=== PATIENT | male | born 1935 | race Caucasian/White ===

== ENCOUNTER 2018-02-12 11:37 | Inpatient (IN) | payer MEDICARE ==
[~2018-02-12] VITALS: Ht 182.9 cm; Wt 83.0 kg
[2018-02-12] VITALS (10 sets, daily range): BP systolic 115–166; BP diastolic 60–77; PULSE 59–88; RESP 15–22; TEMP 97.6–98.4; O2SAT 95–100
[~2018-02-12 11:37] MED LIST: AMLO5TAB96 PO; DILA100C PO; FERR324T PO; FLORPAK2 OR; LABE200T2 PO; METHY5 PO; METO25 PO; SENN15TA2 OR; SIMV20TA OR
[2018-02-12] MEDS ORDERED: SODIUM CHLORIDE 0.9% FLUSH 10 ML FLUSH IVF PRN (12:00)
--- NOTE | 2018-02-12 12:00 | PD ---
HPI Chief Complaint: General Weakness Time Seen by Provider: 11:53 Travel History International Travel<30 days: No Contact w/Intl Traveler<30days: No Traveled to known affect area: No History of Present Illness HPI 82-year-old male with history of CAD, hypertension, remote closed head injury with subdural hematoma, presents emergency department today for evaluation of recurrent near syncopal episodes. Patient states he has been feeling dizzy, "like he is going to pass out" intermittently over the past several months however it has become more frequent. He reports worsening shortness of breath. No chest pain or tightness. He was then his primary care provider's office yesterday and was noted to have bradycardia with a heart rate in the 40s, however this was not sustained. Patient denies any recent falls. Denies any headache. No other focal deficits weakness. PFSH Past Medical History Arthritis: Yes (ALL OVER) Autoimmune Disease: No Cancer: No Cardiovascular Problems: Yes High Cholesterol: Yes Endocrine: No GERD: Yes Genitourinary: No Hypertension: Yes Immune Disorder: No Implanted Vascular Access Dvce: Yes Musculoskeletal: Yes Neurologic: Yes (closed head injury, subdural hematoma) Psychiatric: No Reproductive: No Respiratory: No Immunizations Current: Yes Past Surgical History Abdominal Surgery: Yes (HIATAL HERNIA ) AICD: No Arteriovenous Shunt: No Cardiac Surgery: No Ear Surgery: No Endocrine Surgery: No Eye Surgery: No Genitourinary Surgery: No Insulin Pump: No Joint Replacement: Yes (BILATERAL HIP REPLACEMENTS) Oral Surgery: Yes (TEETH PULLED) Pacemaker: No Thoracic Surgery: Yes Social History Alcohol Use: No Tobacco Use: No Substance Use: No Allergies-Medications (Allergen,Severity, Reaction): Coded Allergies: diatrizoate meglumine (Unverified Allergy, Severe, 06/10/17) gadobenic acid (Unverified Allergy, Severe, 06/10/17) gadodiamide (Unverified Allergy, Severe, 06/10/17) gadoteridol (Unverified Allergy, Severe, 06/10/17) iodixanol (Unverified Allergy, Severe, 06/10/17) iohexol (Unverified Allergy, Severe, 06/10/17) Reported Meds & Prescriptions Reported Meds & Active Scripts Active Reported Dilantin Kapseals (Phenytoin Sodium) 100 Mg Cap 100 Mg PO Q 6HRS Lopressor (Metoprolol Tartrate) 25 Mg Tab 25 Mg PO BID Florastor (Saccharomyces Boulardii) 250 Mg Caleb 250 Mg OR Ritalin (Methylphenidate HCl) 5 Mg Tab 5 Mg PO Labetalol Hcl (Labetalol HCl) 200 Mg Tab 200 Mg PO Norvasc (Amlodipine Besylate) 5 Mg Tab 5 Mg PO DAILY Senna (Sennosides) 15 Mg Tab 15 Mg OR Ferrous Gluconate 325 Mg Tab 325 Mg PO Simvastatin 20 Mg Tab 20 Mg OR Review of Systems Except as stated in HPI: all other systems reviewed are Neg Physical Exam Narrative GENERAL: Well-nourished elderly male patient, hard of hearing, but in no acute distress. SKIN: Focused skin assessment warm/dry. HEAD: Atraumatic. Normocephalic. EYES: Pupils equal and round. No scleral icterus. No injection or drainage. ENT: No nasal bleeding or discharge. Mucous membranes pink and moist. NECK: Trachea midline. No JVD. CARDIOVASCULAR: Regular rate and rhythm. RESPIRATORY: No accessory muscle use. Clear to auscultation. Breath sounds equal bilaterally. GASTROINTESTINAL: Abdomen soft, non-tender, nondistended. Hepatic and splenic margins not palpable. RECTAL EXAM: No masses or tenderness, stool is brown. MUSCULOSKELETAL: No obvious deformities. No clubbing. No cyanosis. No edema. NEUROLOGICAL: Awake and alert. No obvious cranial nerve deficits. Motor grossly within normal limits. Normal speech. PSYCHIATRIC: Appropriate mood and affect; insight and judgment normal. Data Data Last Documented VS Vital Signs Date Time Temp Pulse Resp B/P (MAP) Pulse Ox O2 Delivery O2 Flow Rate FiO2 02/12/18 13:26 66 17 145/69 (94) 100 Nasal Cannula 2.00 02/12/18 11:47 97.6 Orders Orders Electrocardiogram (02/12/18 11:59) Basic Metabolic Panel (Bmp) (02/12/18 11:59) Ckmb (Isoenzyme) Profile (02/12/18 11:59) Complete Blood Count With Diff (02/12/18 11:59) Magnesium (Mg) (02/12/18 11:59) Prothrombin Time / Inr (Pt) (02/12/18 11:59) Act Partial Throm Time (Ptt) (02/12/18 11:59) Troponin I (02/12/18 11:59) Ecg Monitoring (02/12/18 11:59) Bilateral Bp Monitoring (02/12/18 11:59) Iv Access Insert/Monitor (02/12/18 11:59) Oximetry (02/12/18 11:59) Oxygen Administration (02/12/18 11:59) Sodium Chloride 0.9% Flush (Ns Flush) (02/12/18 12:00) Chest, Pa & Lat (02/12/18 11:59) Ct Brain W/O Iv Contrast(Rout) (02/12/18 ) Orthostatic Vital Signs (02/12/18 12:07) Sodium Chlorid 0.9% 500 Ml Inj (Ns 500 M (02/12/18 13:15) Admit Order (Ed Use Only) (02/12/18 14:06) Labs Laboratory Tests Test 02/12/18 12:10 White Blood Count 7.2 TH/MM3 Red Blood Count 3.01 MIL/MM3 Hemoglobin 7.4 GM/DL Hematocrit 23.0 % Mean Corpuscular Volume 76.5 FL Mean Corpuscular Hemoglobin 24.4 PG Mean Corpuscular Hemoglobin Concent 31.9 % Red Cell Distribution Width 19.1 % Platelet Count 310 TH/MM3 Mean Platelet Volume 7.2 FL Neutrophils (%) (Auto) 72.4 % Lymphocytes (%) (Auto) 13.3 % Monocytes (%) (Auto) 11.0 % Eosinophils (%) (Auto) 2.5 % Basophils (%) (Auto) 0.8 % Neutrophils # (Auto) 5.2 TH/MM3 Lymphocytes # (Auto) 1.0 TH/MM3 Monocytes # (Auto) 0.8 TH/MM3 Eosinophils # (Auto) 0.2 TH/MM3 Basophils # (Auto) 0.1 TH/MM3 CBC Comment DIFF FINAL Differential Comment Prothrombin Time 10.9 SEC Prothromb Time International Ratio 1.1 RATIO Activated Partial Thromboplast Time 26.8 SEC Blood Urea Nitrogen 29 MG/DL Creatinine 1.95 MG/DL Random Glucose 86 MG/DL Calcium Level 8.5 MG/DL Magnesium Level 2.1 MG/DL Sodium Level 141 MEQ/L Potassium Level 4.1 MEQ/L Chloride Level 111 MEQ/L Carbon Dioxide Level 20.8 MEQ/L Anion Gap 9 MEQ/L Estimat Glomerular Filtration Rate 33 ML/MIN Total Creatine Kinase 46 U/L Troponin I LESS THAN 0.02 NG/ML [facility] Medical Decision Making Medical Screen Exam Complete: Yes Emergency Medical Condition: Yes Medical Record Reviewed: Yes Differential Diagnosis Symptomatic anemia versus electrolyte abnormality versus intracranial etiology versus arrhythmia Narrative Course 82-year-old male presents emergency department for evaluation of recurrent near syncopal episodes. Patient appears without distress. Vital signs are overall stable except for patient's EKG is a normal sinus rhythm with nonsustained pauses. Patient does not have any pain or shortness of breath. He is unable to stand on orthostatics due to sensation of lightheadedness. Hemoglobin is 7.4. Stool is occult negative. Laboratory Tests Test 02/12/18 12:10 White Blood Count 7.2 TH/MM3 Red Blood Count 3.01 MIL/MM3 Hemoglobin 7.4 GM/DL Hematocrit 23.0 % Mean Corpuscular Volume 76.5 FL Mean Corpuscular Hemoglobin 24.4 PG Mean Corpuscular Hemoglobin Concent 31.9 % Red Cell Distribution Width 19.1 % Platelet Count 310 TH/MM3 Mean Platelet Volume 7.2 FL Neutrophils (%) (Auto) 72.4 % Lymphocytes (%) (Auto) 13.3 % Monocytes (%) (Auto) 11.0 % Eosinophils (%) (Auto) 2.5 % Basophils (%) (Auto) 0.8 % Neutrophils # (Auto) 5.2 TH/MM3 Lymphocytes # (Auto) 1.0 TH/MM3 Monocytes # (Auto) 0.8 TH/MM3 Eosinophils # (Auto) 0.2 TH/MM3 Basophils # (Auto) 0.1 TH/MM3 CBC Comment DIFF FINAL Differential Comment Prothrombin Time 10.9 SEC Prothromb Time International Ratio 1.1 RATIO Activated Partial Thromboplast Time 26.8 SEC Blood Urea Nitrogen 29 MG/DL Creatinine 1.95 MG/DL Random Glucose 86 MG/DL Calcium Level 8.5 MG/DL Magnesium Level 2.1 MG/DL Sodium Level 141 MEQ/L Potassium Level 4.1 MEQ/L Chloride Level 111 MEQ/L Carbon Dioxide Level 20.8 MEQ/L Anion Gap 9 MEQ/L Estimat Glomerular Filtration Rate 33 ML/MIN Total Creatine Kinase 46 U/L Troponin I LESS THAN 0.02 NG/ML Last Impressions Chest X-Ray 02/12/18 6171 Signed Impressions: Service Date/Time: January 12:45 - CONCLUSION: Bibasilar subsegmental atelectasis. Ty Rubin MD Head CT 02/12/18 0000 Signed Impressions: Service Date/Time: January 12:30 - CONCLUSION: 1. No acute intracranial abnormality is identified. 2. Stable chronic findings include mild generalized atrophy and mild periventricular white matter low attenuation characteristic of chronic microvascular ischemia. 3. 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 Romel Roberson MD Findings are reviewed and discussed with my attending physician. Patient be admitted observation to Dr. Watson for further evaluation. Plan is discussed with the patient and his daughters. Diagnosis Primary Impression: Postural dizziness with near syncope Additional Impressions: Anemia Qualified Codes: D64.9 - Anemia, unspecified Shortness of breath Admitting Information Admitting Physician Requests: Observation Condition: Stable ShavonLanie JACOBS Feb 12, 2018 12:00
[2018-02-12 12:26] LABS: AUTOMATED NEUTROPHIL # 5.2 TH/MM3 (1.8-7.7); BASOPHIL # 0.1 TH/MM3 (0-0.2); BASOPHIL % 0.8 % (0.0-2.0); EOSINOPHIL # 0.2 TH/MM3 (0-0.4); EOSINOPHIL % 2.5 % (0.0-4.0); HEMOGLOBIN 7.4 GM/DL (13.0-17.0); LYMPH % 13.3 % (9.0-44.0); MEAN CELL VOLUME 76.5 FL (80.0-100.0); MEAN CORPUSCULAR HEMOGLOBIN 24.4 PG (27.0-34.0); MEAN CORPUSCULAR HGB CONC 31.9 % (32.0-36.0); MEAN PLATELET VOLUME 7.2 FL (7.0-11.0); MONOCYTE # 0.8 TH/MM3 (0-0.9); NEUT % 72.4 % (16.0-70.0); PLATELET COUNT 310 TH/MM3 (150-450); RED BLOOD COUNT 3.01 MIL/MM3 (4.50-5.90); RED CELL DISTRIBUTION WIDTH 19.1 % (11.6-17.2); WHITE BLOOD COUNT 7.2 TH/MM3 (4.0-11.0)
[2018-02-12 12:38] LABS: INTERNATIONAL NORMALIZED RATIO 1.1 RATIO; PROTHROMBIN TIME - PATIENT 10.9 SEC (9.8-11.6)
[2018-02-12 12:46] LABS: BICARBONATE 20.8 MEQ/L (21.0-32.0); BLOOD UREA NITROGEN 29 MG/DL (7-18); CALCIUM 8.5 MG/DL (8.5-10.1); CHLORIDE 111 MEQ/L (98-107); CREATININE 1.95 MG/DL (0.60-1.30); GLOMERULAR FILTRATION RATE 33 ML/MIN (>89); GLUCOSE,RANDOM 86 MG/DL (74-106); MAGNESIUM 2.1 MG/DL (1.5-2.5); SODIUM (NA) 141 MEQ/L (136-145)
[2018-02-12 12:50] LABS: TROPONIN I LESS THAN 0.02 NG/ML (0.02-0.05)
--- NOTE | 2018-02-12 12:53 | RADRPT ---
EXAM DATE/TIME: 02/12/2018 12:30 [facility] COMPARISON: CT BRAIN W/O CONTRAST, February 09, 2011, 4:25. INDICATIONS : Dizziness. RADIATION DOSE: 36.43 CTDIvol (mGy) MEDICAL HISTORY : Hypertension. Subdural hematoma. SURGICAL HISTORY : None. ENCOUNTER: Initial ACUITY: 1 day PAIN SCALE: 0/10 LOCATION: cranial TECHNIQUE: Multiple contiguous axial images were obtained of the head. Using automated exposure control and adj ustment of the mA and/or kV according to patient size, radiation dose was kept as low as reasonably a chievable to obtain optimal diagnostic quality images. DICOM format image data is available electro nically for review and comparison. FINDINGS: CEREBRUM: There is stable mild generalized atrophy. Ventricles are normal in size. There is stable mild periven tricular white matter low attenuation. Stable right temporal lobe encephalomalacia remains. The surgi maddi drain on the left has been removed. The left frontal and right posterior parietal extra-axial flu id collections have resolved. No evidence of midline shift, mass lesion, hemorrhage or acute infarct ion. No extra-axial fluid collections are seen. POSTERIOR FOSSA: The cerebellum and brainstem demonstrate no acute abnormality. The 4th ventricle is midline. The ce rebellopontine angle is unremarkable. EXTRACRANIAL: There is a mucus retention cyst in the right maxillary sinus. SKULL: There is a guille hole in the left frontal parietal high convexity related to prior surgical drain. No evidence of skull fracture. CONCLUSION: 1. No acute intracranial abnormality is identified. 2. Stable chronic findings include mild generalized atrophy and mild periventricular white matter low attenuation characteristic of chronic microvascular ischemia. 3. 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 Romel Roberson MD on February 12, 2018 at 12:46 Board Certified Radiologist. This report was verified electronically.
[2018-02-12] MEDS ORDERED: SODIUM CHLORID 0.9% 500 ML INJ 500 ML IV ONE (13:15)
--- NOTE | 2018-02-12 13:39 | RADRPT ---
EXAM DATE/TIME: 02/12/2018 12:45 [facility] COMPARISON: No previous studies available for comparison. INDICATIONS : Wheezing. MEDICAL HISTORY : Hypertension. SURGICAL HISTORY : None. ENCOUNTER: Initial ACUITY: 1 day PAIN SCORE: 0/10 LOCATION: Bilateral chest FINDINGS: PA and lateral views of the chest demonstrate bibasilar linear densities. Heart mildly enlarged. Tort uous thoracic aorta. The cardiomediastinal contours are unremarkable. Osseous structures are intact . CONCLUSION: Bibasilar subsegmental atelectasis. Ty Rubin MD on February 12, 2018 at 13:37 Board Certified Radiologist. This report was verified electronically.
--- NOTE | 2018-02-12 15:29 | HHI.HP ---
[facility] Jaimee Schafer D.O. Admission Diagnosis Near syncope; SOB; anemia Diagnoses: Chief Complaint: dizziness, near syncope Travel History International Travel<30 Days: No Contact w/Intl Traveler <30 Da: No Traveled to Known Affected Are: No History of Present Illness Written by Amber Strong, acting as scribe for Dr. Watson on 02/12/18 at 15: 24. 82-year-old male with history of HTN, HLD, anemia, closed head injury with subdural hematoma, presents with ongoing intractable dizziness and multiple episodes of near syncope. The patient reports over the past multiple months he has been experiencing dizziness, worse upon ambulation, and feels as though he' s going to fall over. He reports some associated shortness of breath and difficulty catching his breath. He reports weakness of bilateral legs associated with the dizziness. Symptoms improve when lying down and while at rest. His last fall was one month ago and he was unable to get off the floor. He states over the past month he hasn't been participating in much activity because he becomes dizzy. He states he just stays home most of the time. Occasionally he will go shopping at [id number] but has to rest multiple times while shopping. The patient states he had a severe episode awhile ago where he fell and suffered a head injury. He denies any complete loss of consciousness but does report multiple episodes of near syncope. Denies any other medical complaints including no chest pain, palpitations, abdominal pain, nausea/ vomiting, or diarrhea. He uses a cane for ambulation. The patient was reportedly seen by his PCP yesterday who noted the patient to have bradycardia with HR in the 40s. He denies any history of heart disease. He denies any other medical complaints. Review of Systems Except as stated in HPI: all other systems reviewed are Neg Past Family Social History Past Medical History Hypertension Hyperlipidemia Closed head injury with subdural hematoma GERD Arthritis Past Surgical History Bilateral total hip arthroplasty Hernia repair Dental extractions Left frontal bur hole evacuation of subdural hematoma 2010 Reported Medications Dilantin Kapseals (Phenytoin Sodium) 100 Mg Cap 100 Mg PO Q 6HRS Lopressor (Metoprolol Tartrate) 25 Mg Tab 25 Mg PO BID Florastor (Saccharomyces Boulardii) 250 Mg Caleb 250 Mg OR Ritalin (Methylphenidate HCl) 5 Mg Tab 5 Mg PO Labetalol Hcl (Labetalol HCl) 200 Mg Tab 200 Mg PO Norvasc (Amlodipine Besylate) 5 Mg Tab 5 Mg PO DAILY Senna (Sennosides) 15 Mg Tab 15 Mg OR Ferrous Gluconate 325 Mg Tab 325 Mg PO Simvastatin 20 Mg Tab 20 Mg OR Allergies: Coded Allergies: diatrizoate meglumine (Unverified Allergy, Severe, 06/10/17) gadobenic acid (Unverified Allergy, Severe, 06/10/17) gadodiamide (Unverified Allergy, Severe, 06/10/17) gadoteridol (Unverified Allergy, Severe, 06/10/17) iodixanol (Unverified Allergy, Severe, 06/10/17) iohexol (Unverified Allergy, Severe, 06/10/17) Active Ordered Medications Current Medications Medications (Trade) Dose Ordered Sig/Sada Route Start Time Stop Time Status Last Admin (NS Flush) 2 ml UNSCH PRN IVF 02/12/18 12:00 Family History Denies any significant family history including no heart disease, diabetes, stroke, or cancers. Father with prostate problems Social History Prior tobacco use, 3 PPD, quit 40years ago Prior heavy alcohol use (previous [employer] insurance), no alcohol recently Denies any illicit drug use Lives alone Ambulates with cane Physical Exam Vital Signs Vital Signs Date Time Temp Pulse Resp B/P (MAP) Pulse Ox O2 Delivery O2 Flow Rate FiO2 02/12/18 13:26 66 17 145/69 (94) 100 Nasal Cannula 2.00 02/12/18 12:23 78 100 Nasal Cannula 2.00 02/12/18 12:23 64 133/62 (85) 76 115/60 (78) 02/12/18 12:17 100 Nasal Cannula 2.00 02/12/18 12:17 100 Nasal Cannula 2.00 02/12/18 11:47 97.6 88 22 132/66 (88) 100 Physical Exam GENERAL: Well-nourished, well-developed elderly male patient, in NAD. SKIN: No rashes, ecchymoses or lesions. Cool and dry. HEAD: Atraumatic. Normocephalic. EYES: Pupils equal round and reactive. Extraocular motions intact. No scleral icterus. No injection or drainage. ENT: Nose without bleeding, purulent drainage or septal hematoma. Airway patent. NECK: Trachea midline. No JVD or lymphadenopathy. Supple, nontender. CARDIOVASCULAR: Bradycardic, regular rhythm without murmurs, gallops, or rubs. RESPIRATORY: Clear to auscultation. Breath sounds equal bilaterally. No wheezes , rales, or rhonchi. GASTROINTESTINAL: Abdomen soft, non-tender, nondistended. No guarding. Normoactive bowel sounds x4. MUSCULOSKELETAL: Extremities without clubbing, cyanosis, or edema. NEUROLOGICAL: Awake and alert. Cranial nerves II through XII intact. Motor and sensory grossly within normal limits. Normal speech. Laboratory Laboratory Tests Test 02/12/18 12:10 White Blood Count 7.2 Red Blood Count 3.01 Hemoglobin 7.4 Hematocrit 23.0 Mean Corpuscular Volume 76.5 Mean Corpuscular Hemoglobin 24.4 Mean Corpuscular Hemoglobin Concent 31.9 Red Cell Distribution Width 19.1 Platelet Count 310 Mean Platelet Volume 7.2 Neutrophils (%) (Auto) 72.4 Lymphocytes (%) (Auto) 13.3 Monocytes (%) (Auto) 11.0 Eosinophils (%) (Auto) 2.5 Basophils (%) (Auto) 0.8 Neutrophils # (Auto) 5.2 Lymphocytes # (Auto) 1.0 Monocytes # (Auto) 0.8 Eosinophils # (Auto) 0.2 Basophils # (Auto) 0.1 CBC Comment DIFF FINAL Differential Comment Prothrombin Time 10.9 Prothromb Time International Ratio 1.1 Activated Partial Thromboplast Time 26.8 Blood Urea Nitrogen 29 Creatinine 1.95 Random Glucose 86 Calcium Level 8.5 Magnesium Level 2.1 Sodium Level 141 Potassium Level 4.1 Chloride Level 111 Carbon Dioxide Level 20.8 Anion Gap 9 Estimat Glomerular Filtration Rate 33 Total Creatine Kinase 46 Troponin I LESS THAN 0.02 Result Diagram: 02/12/18 1210 02/12/18 1210 Imaging Last Impressions Chest X-Ray 02/12/18 [id number] Signed Impressions: Service Date/Time: January 12:45 - CONCLUSION: Bibasilar subsegmental atelectasis. Ty Rubin MD Head CT 02/12/18 0000 Signed Impressions: Service Date/Time: January 12:30 - CONCLUSION: 1. No acute intracranial abnormality is identified. 2. Stable chronic findings include mild generalized atrophy and mild periventricular white matter low attenuation characteristic of chronic microvascular ischemia. 3. 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 MD Kathleen Downs VTE Risk Assessment Caprini VTE Risk Assessment: Mod/High Risk (score >= 2) Caprini Risk Assessment Model Point Value = 1 Point Value = 2 Point Value = 3 Point Value = 5 Age 41-60 Minor surgery BMI > 25 kg/m2 Swollen legs Varicose veins or History of unexplained or recurrent spontaneous Oral contraceptives or hormone replacement Sepsis (< 1 month) Serious lung disease, including pneumonia (< 1 month) Abnormal pulmonary function Acute myocardial infarction Congestive heart failure (< 1 month) History of inflammatory bowel disease Medical patient at bed rest Age 61-74 Arthroscopic surgery Major open surgery (> 45 min) Laparoscopic surgery (> 45 min) Malignancy Confined to bed (> 72 hours) Immobilizing plaster cast Central venous access Age >= 75 History of VTE Family history of VTE Factor V Leiden Prothrombin [id number] Lupus anticoagulant Anticardiolipin antibodies Elevated serum homocysteine Heparin-induced thrombocytopenia Other congenital or acquired thrombophilia Stroke (< 1 month) Elective arthroplasty Hip, pelvis, or leg fracture Acute spinal cord injury (< 1 month) Prophylaxis Regimen Total Risk Factor Score Risk Level Prophylaxis Regimen 0-1 Low Early ambulation 2 Moderate Order ONE of the following: *Sequential Compression Device (SCD) *Heparin 5000 units SQ BID 3-4 Higher Order ONE of the following medications: *Heparin 5000 units SQ TID *Enoxaparin/Lovenox 40 mg SQ daily (WT < 150 kg, CrCl > 30 mL/min) *Enoxaparin/Lovenox 30 mg SQ daily (WT < 150 kg, CrCl > 10-29 mL/min) *Enoxaparin/Lovenox 30 mg SQ BID (WT < 150 kg, CrCl > 30 mL/min) AND/OR *Sequential Compression Device (SCD) 5 or more Highest Order ONE of the following medications: *Heparin 5000 units SQ TID (Preferred with Epidurals) *Enoxaparin/Lovenox 40 mg SQ daily (WT < 150 kg, CrCl > 30 mL/min) *Enoxaparin/Lovenox 30 mg SQ daily (WT < 150 kg, CrCl > 10-29 mL/min) *Enoxaparin/Lovenox 30 mg SQ BID (WT < 150 kg, CrCl > 30 mL/min) AND *Sequential Compression Device (SCD) Assessment and Plan Problem List: (1) Anemia ICD Code: D64.9 - Anemia, unspecified Status: Acute (2) Postural dizziness with near syncope ICD Code: R42 - Dizziness and giddiness; R55 - Syncope and collapse Status: Acute Assessment and Plan 82-year-old male with history of HTN, HLD, anemia, closed head injury with subdural hematoma, presents with ongoing intractable dizziness and multiple episodes of near syncope. Near Syncope/Dizziness: suspect secondary Bradycardia. Patient reportedly with HR in 40s at PCP office. -Head CT images reviewed, no acute findings, mild generalized atrophy, chronic microvascular ischemia; stable encephalomalacia right temporal lobe -EKG reviewed, shows sinus rhythm with 1st degree AV block -Monitor on telemetry -RN to update home med list, hold any rate controlling medications -Check TSH -Check echocardiogram -Consult cardiology -Consult PT Symptomatic Anemia: Hgb 7.4, patient with +dizziness/SOB/near syncope. -give 1u pRBC transfusion -check stool hemoccult -check iron studies -consult gastroenterology -monitor CBC HTN/HLD: chronic -RN to update home meds, will restart -monitor BP, adjust antihypertensives as needed DVT Prophylaxis: teds/SCDs; avoid chemoprophylaxis with anemia the above note was scribed by Ms.Kristy Strong. I attest that I had a face-to- face encounter with the patient and personally performed the history , physical exam and medical decision making. Discussed Condition With Patient, ER COMMISSIONING EDITOR Problem Qualifiers (1) Anemia: Qualified Codes: D64.9 - Anemia, unspecified Amber Strong PA-C Feb 12, 2018 15:29 Karon Watson MD Feb 12, 2018 18:20
[2018-02-12] MEDS ORDERED: SODIUM CHLOR 0.9% 1000 ML INJ 1,000 ML IV ONE (15:45)
--- NOTE | 2018-02-12 16:19 | PD.CONS ---
HPI History of Present Illness This is a 82 year old male with hx SDH who presented to ER for dizziness for the last month. For the last month he has been having dizziness worse when standing up. He also has more frequent burping. If he does NOT burp it exacerbates his dizziness. He has been having falls. He sustained a SDH after a recent fall. Denies blood in stool, black tarry stool, weight loss. Stool was guiac neg in ER. Denies abd pain. Admits episode n/v recently after having a beer. Last colonoscopy in [place] some years ago, can recall no further details. Unsure if he has had EGD. (Eve Renteria) PFSH Past Medical History Hypertension Hyperlipidemia Closed head injury with subdural hematoma GERD Arthritis Past Surgical History Bilateral total hip arthroplasty Hernia repair Dental extractions (Eve Renteria) Coded Allergies: diatrizoate meglumine (Unverified Allergy, Severe, 06/10/17) gadobenic acid (Unverified Allergy, Severe, 06/10/17) gadodiamide (Unverified Allergy, Severe, 06/10/17) gadoteridol (Unverified Allergy, Severe, 06/10/17) iodixanol (Unverified Allergy, Severe, 06/10/17) iohexol (Unverified Allergy, Severe, 06/10/17) Family History Denies any significant family history including no heart disease. 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), no alcohol recently Denies any illicit drug use Lives alone Ambulates with cane (Eve Renteria) Review of Systems Constitutional: COMPLAINS OF: Fatigue, Dizziness, DENIES: Fever Endocrine: DENIES: Polydipsia Eyes: DENIES: Blurred vision Ears, nose, mouth, throat: COMPLAINS OF: Hearing loss Respiratory: DENIES: Cough Cardiovascular: DENIES: Chest pain Gastrointestinal: DENIES: Abdominal pain, Black stools, Bloody stools, Nausea, Vomiting, Hematemesis Genitourinary: DENIES: Hematuria Musculoskeletal: DENIES: Muscle aches Integumentary: DENIES: Jaundice Hematologic/lymphatic: DENIES: Bruising Immunologic/allergic: DENIES: Eczema Neurologic: COMPLAINS OF: Abnormal gait Psychiatric: DENIES: Confusion (Katina Renteriajarrett JACOBS) GI Exam Vitals I&O Vital Signs Date Time Temp Pulse Resp B/P (MAP) Pulse Ox O2 Delivery O2 Flow Rate FiO2 02/12/18 13:26 66 17 145/69 (94) 100 Nasal Cannula 2.00 02/12/18 12:23 78 100 Nasal Cannula 2.00 02/12/18 12:23 64 133/62 (85) 76 115/60 (78) 02/12/18 12:17 100 Nasal Cannula 2.00 02/12/18 12:17 100 Nasal Cannula 2.00 02/12/18 11:47 97.6 88 22 132/66 (88) 100 Imaging Last Impressions Chest X-Ray 02/12/18 1159 Signed Impressions: Service Date/Time: January 12:45 - CONCLUSION: Bibasilar subsegmental atelectasis. Ty Rubin MD Head CT 02/12/18 0000 Signed Impressions: Service Date/Time: January 12:30 - CONCLUSION: 1. No acute intracranial abnormality is identified. 2. Stable chronic findings include mild generalized atrophy and mild periventricular white matter low attenuation characteristic of chronic microvascular ischemia. 3. 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 Romel Roberson MD Laboratory Test 02/12/18 12:10 White Blood Count 7.2 TH/MM3 Red Blood Count 3.01 MIL/MM3 Hemoglobin 7.4 GM/DL Hematocrit 23.0 % Mean Corpuscular Volume 76.5 FL Mean Corpuscular Hemoglobin 24.4 PG Mean Corpuscular Hemoglobin Concent 31.9 % Red Cell Distribution Width 19.1 % Platelet Count 310 TH/MM3 Mean Platelet Volume 7.2 FL Neutrophils (%) (Auto) 72.4 % Lymphocytes (%) (Auto) 13.3 % Monocytes (%) (Auto) 11.0 % Eosinophils (%) (Auto) 2.5 % Basophils (%) (Auto) 0.8 % Neutrophils # (Auto) 5.2 TH/MM3 Lymphocytes # (Auto) 1.0 TH/MM3 Monocytes # (Auto) 0.8 TH/MM3 Eosinophils # (Auto) 0.2 TH/MM3 Basophils # (Auto) 0.1 TH/MM3 CBC Comment DIFF FINAL Differential Comment Prothrombin Time 10.9 SEC Prothromb Time International Ratio 1.1 RATIO Activated Partial Thromboplast Time 26.8 SEC Blood Urea Nitrogen 29 MG/DL Creatinine 1.95 MG/DL Random Glucose 86 MG/DL Calcium Level 8.5 MG/DL Magnesium Level 2.1 MG/DL Sodium Level 141 MEQ/L Potassium Level 4.1 MEQ/L Chloride Level 111 MEQ/L Carbon Dioxide Level 20.8 MEQ/L Anion Gap 9 MEQ/L Estimat Glomerular Filtration Rate 33 ML/MIN Total Creatine Kinase 46 U/L Troponin I LESS THAN 0.02 NG/ML Physical Examination HEENT: PERRL; normocephalic; atraumatic; no jaundice. CHEST: diminished CARDIAC: RRR ABDOMEN: Soft, nondistended, nontender; no hepatosplenomegaly; bowel sounds are present in all four quadrants. EXTREMITIES: No clubbing, cyanosis, or edema. SKIN: Normal; no rash; no jaundice. ORDER EXPEDITER: No focal deficits; alert and oriented times three. (Eve Renteria) Assessment and Plan Plan ASSESSMENT - anemia - hgb 7.4 on admission. microcytic. pt has been having dizziness for the last month. no obvious GIB stool guiac neg. colonoscopy "long time " ago, no further details. limited hx. not on blood thinners cardiology has been consulted. d/w ER physician and cardiology has cleared for endoscopy after pt receives blood transfusion PLAN - transfuse prbc, pending - EGD & colonoscopy tomorrow with cardiac clearance - clears - obtain consent - NPO after midnight - golytely - monitor labs - transfuse as needed - notify GI active bleeding pt seen by myself and Dr Breen and this note is on her behalf (Eve Renteria) Physician Comments seen, examined agree with above start prep after transfusion (Shantell Breen MD) Eve Renteria Feb 12, 2018 16:19 Shantell Breen MD Feb 12, 2018 18:10
[2018-02-12] MEDS ORDERED: ONDANSETRON HCL 4 MG/2 ML VIAL IVP PRN (16:30)
[2018-02-12] MEDS ORDERED: MAGNESIUM HYDROXIDE SUSP 30 ML CUP PO PRN (16:30)
[2018-02-12] MEDS ORDERED: SENNOSIDES 8.6 MG TAB PO PRN (16:30)
[2018-02-12] MEDS ORDERED: BISACODYL 10 MG SUPP RECTAL PRN (16:30)
[2018-02-12] MEDS ORDERED: ACETAMINOPHEN/HYDROcodone 325 MG/5 MG TAB PO PRN (16:30)
[2018-02-12] MEDS ORDERED: ACETAMINOPHEN 325 MG TAB PO PRN (16:30)
[2018-02-12] MEDS ORDERED: LACTULOSE SYRUP 20 GM/30 ML CUP PO PRN (16:30)
[2018-02-12] MEDS ORDERED: PEG (High)/E-LYTE SOLN 4000 ML BTL PO ONE (16:45)
[2018-02-12 17:52] LABS: % SATURATION IRON PROFILE 4.2 % (20-50); IRON (FE) 17 MCG/DL (65-175); TOTAL IRON BINDING CAPACITY 403 MCG/DL (250-450)
[2018-02-12 18:01] LABS: FERRITIN 26 NG/ML (26-388)
[2018-02-12] MEDS ORDERED: SODIUM CHLOR 0.9% 1000 ML INJ 1,000 ML IV SCH (18:30)
[2018-02-12] MEDS: DOCUSATE SODIUM 50 MG/SENNA 8.6 MG TAB PO SCH (23:44)
[2018-02-13] VITALS (10 sets, daily range): BP systolic 149–174; BP diastolic 68–79; PULSE 53–76; RESP 16–20; TEMP 97.6–98.3; O2SAT 95–100
[2018-02-13] MEDS ORDERED: LACTATED RINGER'S 1000 ML IV PRN (02:30)
[2018-02-13] MEDS ORDERED: CHLORHEXIDINE GLUCONATE 2 % 1 PACK (2 CLOTHS) TOPICAL PRN (02:30)
[2018-02-13] MEDS ORDERED: SODIUM CHLORID 0.9% 500 ML IV PRN (02:30)
[2018-02-13] MEDS ORDERED: POVIDONE IODINE 5% (ANTISEPSIS KIT) 4 APPLICATIONS EACH NARE PRN (02:30)
[2018-02-13 07:46] LABS: AUTOMATED NEUTROPHIL # 2.9 TH/MM3 (1.8-7.7); BASOPHIL # 0.1 TH/MM3 (0-0.2); BASOPHIL % 1.6 % (0.0-2.0); EOSINOPHIL # 0.3 TH/MM3 (0-0.4); EOSINOPHIL % 5.8 % (0.0-4.0); HEMATOCRIT 26.3 % (39.0-51.0); HEMOGLOBIN 8.5 GM/DL (13.0-17.0); LYMPH % 13.6 % (9.0-44.0); LYMPHOCYTE # 0.6 TH/MM3 (1.0-4.8); MEAN CELL VOLUME 78.3 FL (80.0-100.0); MEAN CORPUSCULAR HEMOGLOBIN 25.3 PG (27.0-34.0); MEAN CORPUSCULAR HGB CONC 32.3 % (32.0-36.0); MEAN PLATELET VOLUME 7.2 FL (7.0-11.0); MONO % 14.3 % (0.0-8.0); MONOCYTE # 0.6 TH/MM3 (0-0.9); NEUT % 64.7 % (16.0-70.0); PLATELET COUNT 259 TH/MM3 (150-450); RED BLOOD COUNT 3.36 MIL/MM3 (4.50-5.90); RED CELL DISTRIBUTION WIDTH 18.7 % (11.6-17.2); WHITE BLOOD COUNT 4.5 TH/MM3 (4.0-11.0)
[2018-02-13 08:11] LABS: BICARBONATE 20.7 MEQ/L (21.0-32.0); CREATININE 1.49 MG/DL (0.60-1.30)
[2018-02-13] MEDS: DOCUSATE SODIUM 50 MG/SENNA 8.6 MG TAB PO SCH ×2 (09:00→21:00)
--- NOTE | 2018-02-13 09:21 | MB ---
cc: Umang Askew MD DATE: 02/12/2018 HISTORY OF PRESENT ILLNESS: Romel is a very pleasant 82-year-old gentleman followed by Dr. Lobo. He has been on a beta andrea, which was stopped about a week ago due to unstable rhythm. The patient does not recall having a heart catheterization in the past. He does complain of severe shortness of breath and he presents with near syncope, weakness and fatigue, was found to have heart rates in the 30s and 40s as an outpatient. Sent to the ER for further evaluation and management. Since ER admission, there has been no documented bradycardia. The patient denies chest pain, fever, chills, cough, GI/ bleeding, PND, orthopnea, syncope or dizziness. PAST MEDICAL HISTORY: Per history of present illness. PAST MEDICAL HISTORY: Includes arthritis, hyperlipidemia, GERD, hypertension, hiatal hernia, bilateral hip replacements. SOCIAL HISTORY: Denies tobacco or alcohol use. ALLERGIES: DIATROZOATE, GADOBENIC ACID, GADODIAMIDE, GADOTERIDOL, IODIXANOL, IOHEXOL. MEDICATIONS PRIOR TO ADMISSION: Dilantin, Lopressor 25 mg b.i.d., which has been held for a week, Florastor, Ritalin, labetalol 200 mg daily, Norvasc 5 mg daily, Senna, ferrous gluconate 325, simvastatin 20 daily. MEDICATIONS IN THE HOSPITAL: Senna 1 tablet b.i.d. PHYSICAL EXAMINATION: VITAL SIGNS: Pulse ranging between 60 and 88, respiratory rate 17, blood pressure 148/66, sats 100% on 2 liters nasal cannula. GENERAL: He is alert and oriented x 3, in no acute distress. NECK: Supple. No JVD. No bruit. CARDIOVASCULAR: S1, S2. No murmurs, rubs or gallops. LUNGS: Has equal breath sounds bilaterally. ABDOMEN: Soft, nontender, nondistended, with positive bowel sounds. EXTREMITIES: No extremity edema. DIAGNOSTIC DATA: CT of the head shows no acute intracranial abnormality. Stable chronic findings include mild generalized atrophy and mild periventricular white matter, low attenuation characteristic of chronic microvascular ischemia, stable encephalomalacia in the right temporal lobe. Chest x-ray, bibasilar subsegmental atelectasis. ECHOCARDIOGRAM: 1. Normal sinus rhythm at 71 beats per minute, with 1 junctional escape beat. 2. Possible inferior WI, age indeterminate. LABORATORY DATA: White count 7.2, hemoglobin 7.4, hematocrit 23.0, platelet count 310. Troponin less than 0.02. Sodium 141, potassium 4.1, chloride 111, BUN 29, creatinine 1.95. INR is 1.1. HE HAS FOLLOWING DIAGNOSES: 1. Bradycardia. 2. Near syncope. 3. Anemia. 4. Chronic renal insufficiency. 5. Acute renal failure. 6. Dyspnea. 7. Congestive heart failure. DISCUSSION: At this point in time, it is not clear whether or not his bradycardia is related to use of beta blockers. His family shows me a list of medications that did not include labetalol. However, the ER note notes that he was on labetalol. Certainly, we will need to hold all AV lawrence blockade and observe his heart rate completely off AV lawrence blockade. He does have what sounds like [place] Heart Association class IV CHF. Optimally, he will need a heart catheterization, however, he has possible acute versus chronic renal insufficiency and severe anemia. I think he needs an anemia workup first. I discussed the case with Dr. Nguyen, who agrees the patient should be transfused with a unit of blood. We will followup his trends and creatinine, hemoglobin and heart rate for further recommendations. Discussed the case in detail with the patient and his family. They understand and agree with the plan. MD FATIMAH Garrison/CALLUM , 05:36 PM , 06:57 PM
[2018-02-13] MEDS ORDERED: PROPOFOL 200 MG/20 ML AMP IV ONE (12:00)
[2018-02-13] MEDS ORDERED: LIDOCAINE HCL 1% PF 5 ML SYRINGE OTHER ONE (12:00)
--- NOTE | 2018-02-13 13:32 | GIPROC ---
[facility] [address] [facility]. [facility], [id number] EGD PROCEDURE REPORT EXAM DATE: 02/13/2018 PATIENT NAME: Romel Flores MR #: [id number] BIRTHDATE: 1935 ATTENDING: Shantell Breen MD ORDER #: [id number] LEADERSHIP DEVELOPMENT MANAGER: Richardson Huerta and Briseida Vines STATUS: inpatient INDICATIONS: The patient is a 82 yr old male here for an EGD due to anemia PROCEDURE PERFORMED: EGD w/ biopsy EGD w/ directed submucosal injection(s), any substance egd with clips, control of bleeding MEDICATIONS: None and Per Anesthesia. TOPICAL ANESTHETIC: none CONSENT: The patient understands the risks and benefits of the procedure and understands that these risks include, but are not limited to: sedation, allergic reaction, infection, perforation and/or bleeding. Alternative means of evaluation and treatment include, among others: physical exam, x-rays, and/or surgical intervention. The patient elects to proceed with this endoscopic procedure. medical equipment was checked for proper function. Hand hygiene and appropriate measures for infection prevention was taken. After the risks, benefits and alternatives of the procedure were thoroughly explained, Informed consent was verified, confirmed and timeout was successfully executed by the treatment team. The patient was anesthetized with topical anesthesia and the EC-[id number] (Pedi C) endoscope was introduced through the mouth and advanced to the bulb of duodenum. Retroflexed views revealed a hiatal hernia The gastroscope was then slowly withdrawn and removed. Stricture duodenal bulb , ulcer with vissible vessel, oozing slightly when touched-2 clips applied, 3 cc of epinephrine injected-no further bleeding gastritis antrum-biopsy esophagitis distal esophagus-biopsy. ADVERSE EVENTS: There were no complications. IMPRESSIONS: 1. Stricture duodenal bulb , ulcer with vissible vessel, oozing slightly when touched-2 clips applied, 3 cc of epinephrine injected-no further bleeding gastritis antrum-biopsy esophagitis distal esophagus-biopsy 2. Retroflexed views revealed a hiatal hernia RECOMMENDATIONS: 1. Await biopsy results. Biopsy results will not be ready for 7-10 days. If you don't hear from us in two weeks, call our office for biopsy results. 2. Anti-reflux regimen 3. Start PPI 4. Avoid NSAIDS 5. Soft diet ct abdomen/pelvis PATIENT CONDITION: stable DISPOSITION: Inpatient REPEAT EXAM: Return 6 weeks EGD Shantell Breen MD eSigned: Shantell Breen MD 02/13/2018 1:32 PM cc: PATIENT NAME: Romel Flores MR#: [id number]
--- NOTE | 2018-02-13 13:34 | GIPROC ---
[facility] [address] [facility]. [facility] [place], [address] COLONOSCOPY PROCEDURE REPORT EXAM DATE: 02/13/2018 PATIENT NAME: Romel Flores MR #: [id number] BIRTHDATE: 1935 ENDOSCOPIST: Shantell Breen MD ORDER #: [id number] MANAGER CONSTRUCTION: Richardson Huerta and Briseida Vines STATUS: inpatient INDICATIONS: The patient is a 82 yr old male here for a colonoscopy due to anemia PROCEDURE PERFORMED: Colonoscopy, diagnostic MEDICATIONS: None and Per Anesthesia. PREP QUALITY: good PREP TYPE:Other: ESTIMATED BLOOD LOSS: None CONSENT: The patient understands the risks and benefits of the procedure and understands that these risks include, but are not limited to: sedation, allergic reaction, infection, perforation and/or bleeding. Alternative means of evaluation and treatment include, among others: physical exam, x-rays, and/or surgical intervention. The patient elects to proceed with this endoscopic procedure. medical equipment was checked for proper function. Hand hygiene and appropriate measures for infection prevention was taken. After the risks, benefits and alternatives of the procedure were thoroughly explained, Informed consent was verified, confirmed and timeout was successfully executed by the treatment team. A digital exam revealed external hemorrhoids The Pentax EC-[id number] endoscope was introduced through the anus and advanced to the cecum, which was identified by both the appendix and ileocecal valve. The instrument was then slowly withdrawn as the colon was fully examined. COLON FINDINGS: Diverticulosis sigmoid,descending internal hemorrhoids grade 2. Retroflexed views revealed internal hemorrhoids and Retroflexed views revealed medium internal hemorrhoids The scope was then completely withdrawn from the patient and the procedure terminated. PROCEDURE WITHDRAWAL TIME:6minutes ADVERSE EVENTS: There were no complications. IMPRESSIONS: 1. Diverticulosis sigmoid,descending internal hemorrhoids grade 2 2. Retroflexed views revealed internal hemorrhoids 3. Retroflexed views revealed medium internal hemorrhoids 4. Revealed external hemorrhoids RECOMMENDATIONS: 1. Benefiber 2 tsp daily 2. Probiotics from any [employer] or health food store 3. Yearly rectal exams RECALL: Return 10 years Colonoscopy Shantell Breen MD eSigned: Shantell Breen MD 02/13/2018 1:34 PM cc: PATIENT NAME: Romel Flores MR#: [id number]
[2018-02-13] MEDS ORDERED: EPINEPHrine HCL (1:10,000) 1 MG/10 ML SYRINGE OTHER ONE (13:43)
--- NOTE | 2018-02-13 14:13 | HHI.PR ---
Subjective Remarks in no acute distress. had EGD/colonoscopy earlier today. overall feeling better. the daughters at the bedside. Objective Vitals Vital Signs Date Time Temp Pulse Resp B/P (MAP) Pulse Ox O2 Delivery O2 Flow Rate FiO2 02/13/18 13:26 96.9 59 18 140/66 (90) 97 02/13/18 07:32 98.3 57 16 157/68 (97) 98 02/13/18 04:58 53 02/13/18 02:58 98.3 55 16 156/70 (98) 97 02/13/18 01:45 57 02/13/18 00:21 97.6 65 18 151/72 98 02/13/18 00:00 55 02/12/18 23:51 97.6 63 18 129/73 98 02/12/18 23:19 97.7 67 18 142/73 (96) 96 02/12/18 21:46 97.8 68 15 148/77 (100) 95 02/12/18 20:00 98.4 59 16 146/66 (92) 99 02/12/18 18:37 98.0 67 20 166/67 (100) 97 02/12/18 16:32 60 17 148/66 (93) 100 Nasal Cannula 2.00 I/O 02/12/18 02/12/18 02/12/18 02/13/18 02/13/18 02/13/18 07:00 15:00 23:00 07:00 15:00 23:00 Intake Total 500 ml 900 ml 150 ml Output Total 100 ml Balance 400 ml 900 ml 150 ml Intake IV Total 500 ml Packed Cells 800 ml Blood Product IV Normal Saline Flush 100 ml Other 150 ml Output Urine Total 100 ml Result Diagram: 02/13/18 0625 02/13/18 0625 Imaging Last Impressions Chest X-Ray 02/12/18 1159 Signed Impressions: Service Date/Time: January 12:45 - CONCLUSION: Bibasilar subsegmental atelectasis. Ty Rubin MD Head CT 02/12/18 0000 Signed Impressions: Service Date/Time: January 12:30 - CONCLUSION: 1. No acute intracranial abnormality is identified. 2. Stable chronic findings include mild generalized atrophy and mild periventricular white matter low attenuation characteristic of chronic microvascular ischemia. 3. 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 Romel Roberson MD Objective Remarks GENERAL: elderly male, in no apparent distress. CARDIOVASCULAR: Regular rate and regular rhythm without murmurs, gallops, or rubs. RESPIRATORY: Clear to auscultation. Breath sounds equal bilaterally. No wheezes , rales, or rhonchi. GASTROINTESTINAL: Abdomen soft, non-tender, nondistended. Normal, active bowel sounds MUSCULOSKELETAL: Extremities without clubbing, cyanosis, or edema. NEURO: Alert & Oriented x4 to person, place, time, situation. Moves all ext x4 Procedures EGD/ colonoscopy. Medications and IVs Inpatient Medications Acetaminophen (Tylenol) 650 mg Q6H PRN PO headache/fever/pain1-4; Start at 16:30 Acetaminophen/ Hydrocodone Bitart ([place] 5-325 Mg) 1 tab Q8H PRN PO pain 5-10 ; Start 02/12/18 at 16:30 Bisacodyl (Dulcolax Supp) 10 mg DAILY PRN RECTAL SEVERE CONSITIPATION; Start at 16:30 Chlorhexidine Gluconate (Chlorhexidine 2% Cloth) 3 pack VENDOR QUALITY SUPERVISOR PRN TOPICAL SEE LABEL COMMENTS; Start 02/13/18 at 02:30; Stop 02/16/18 at 02:29 Epinephrine HCl (EPINEPHrine (1:10,000) INJ) 1 mg ONCE ONCE OTHER Last administered on 02/13/18at 13:45; Start 02/13/18 at 13:43; Stop 02/13/18 at 13:45 ; Status DC Lactated Ringer's 1,000 ml @ 30 mls/hr Q24H PRN IV SEE LABEL COMMENTS; Start at 02:30; Stop 02/16/18 at 02:29 Lactulose (Lactulose Liq) 30 ml DAILY PRN PO SEVERE CONSITIPATION; Start at 16:30 Magnesium Hydroxide (Milk Of Magnesia Liq) 30 ml Q12H PRN PO Mild constipation ; Start 02/12/18 at 16:30 Ondansetron HCl (Zofran Inj) 4 mg Q6H PRN IVP NAUSEA OR VOMITING; Start at 16:30 Pantoprazole Sodium (Protonix) 40 mg Q12HR PO ; Start 02/13/18 at 21:00 Polyethylene Glycol/ Electrolytes (Colyte Liq) 4,000 ml ONCE ONCE PO Last administered on 02/13/18at 04:25; Start 02/12/18 at 16:45; Stop 02/12/18 at 16:48 ; Status DC Povidone Iodine (Betadine 5% Antisepsis Kit) 1 applic VENDOR QUALITY SUPERVISOR PRN EACH NARE SEE LABEL COMMENTS; Start 02/13/18 at 02:30; Stop 02/16/18 at 02:29 Senna/Docusate Sodium (Charo-Colace) 1 tab BID PO Last administered on at 23:44; Start 02/12/18 at 21:00 Sennosides (Senokot) 17.2 mg Q12H PRN PO Moderate constipation; Start 02/12/18 at 16:30 Sodium Chloride 500 ml @ 30 mls/hr [id number] PRN IV SEE LABEL COMMENTS; Start at 02:30; Stop 02/16/18 at 02:29 Sodium Chloride (NS Flush) 2 ml UNSCH PRN IVF FLUSH AFTER USING IV ACCESS; Start 02/12/18 at 12:00 A/P Problem List: (1) Anemia ICD Code: D64.9 - Anemia, unspecified Status: Acute (2) Postural dizziness with near syncope ICD Code: R42 - Dizziness and giddiness; R55 - Syncope and collapse Status: Acute Assessment and Plan A/P Near Syncope/Dizziness: suspect secondary Bradycardia. Patient reportedly with HR in 40s at PCP office. -Head CT images reviewed, no acute findings, mild generalized atrophy, chronic microvascular ischemia; stable encephalomalacia right temporal lobe -EKG reviewed, shows sinus rhythm with 1st degree AV block -Monitor on telemetry -Check echocardiogram -cardiology consult appreciated. -Consulted PT Symptomatic Anemia- hypochromic/ microcytic- -s/p PRBC transfusion with improved H/H -GI consult appreciated- -s/p EGD with : Stricture duodenal bulb , ulcer with vissible vessel ,oozing slightly when touched-2 clips applied, 3 cc of epinephrine injected-no further bleeding.gastritis antrum-biopsy.esophagitis distal esophagus-biopsy. -s/p colonoscopy with diverticulosis and internal/external hemorrhoids. -continue PPI -CT of the abdomen pending. -continue to monitor H/H and transfuse as needed. acute kidney injury -improved after PRBC transfusion and IVF -continue to monitor. elevated TSH; will check free T4 HTN/HLD: chronic -RN to update home meds, will restart -monitor BP, adjust antihypertensives as needed DNR status per my d/w the daughters. DVT Prophylaxis: teds/SCDs; avoid chemoprophylaxis with anemia Problem Qualifiers (1) Anemia: Qualified Codes: D64.9 - Anemia, unspecified Karon Watson MD Feb 13, 2018 14:13
--- NOTE | 2018-02-13 16:15 | RADRPT ---
EXAM DATE/TIME: 02/13/2018 15:51 [place] COMPARISON: No previous studies available for comparison. INDICATIONS : Anemia, SOB,Near syncope. ORAL CONTRAST: No oral contrast ingested. RADIATION DOSE: 11.83 CTDIvol (mGy) MEDICAL HISTORY : Cardiovascular disease. Hypertension. Gastroesophageal reflux disease.H Hernia, subdural, closed head injury SURGICAL HISTORY : ENCOUNTER: Initial ACUITY: 1 day PAIN SCALE: 0/10 LOCATION: abdomen TECHNIQUE: Volumetric scanning of the abdomen and pelvis was performed. Using automated exposure control and ad justment of the mA and/or kV according to patient size, radiation dose was kept as low as reasonably achievable to obtain optimal diagnostic quality images. DICOM format image data is available electro nically for review and comparison. FINDINGS: LOWER LUNGS: Minimal bibasilar densities. LIVER: Homogeneous density without lesion. There is no dilation of the biliary tree. Multiple calcified gal lstones. SPLEEN: Normal size without lesion. PANCREAS: Within normal limits. KIDNEYS: Atrophic right kidney. There is no mass, stone, or hydronephrosis. Left-sided parapelvic renal cysts . ADRENAL GLANDS: Within normal limits. VASCULAR: There is a bilobed aneurysm distal infrarenal abdominal aorta measuring 3.2 proximally 3.5 cm distall y. Diffuse atherosclerotic changes.. BOWEL/MESENTERY: Diverticulosis of the colon without diverticulitis. There is no free intraperitoneal air or fluid. ABDOMINAL WALL: Within normal limits. RETROPERITONEUM: There is no lymphadenopathy. BLADDER: No wall thickening or mass. Mildly distended REPRODUCTIVE: Within normal limits. INGUINAL: There is no lymphadenopathy or hernia. Fat containing left inguinal hernia. MUSCULOSKELETAL: Bilateral hip prostheses. Atherosclerotic changes thoracolumbar spine. CONCLUSION: 1. Bilobed infrarenal abdominal aortic aneurysm measuring 3.5 cm in maximum dimension. 2. Diverticulosis without diverticulitis. 3. Atrophic right kidney. 4. Cholelithiasis. 5. Left-sided parapelvic renal cyst. 6. Minimal bibasilar atelectasis. Ty Rubin MD on February 13, 2018 at 16:09 Board Certified Radiologist. This report was verified electronically.
--- NOTE | 2018-02-13 16:20 | MB ---
cc: Hudson Freedman MD DATE: 02/13/2018 REASON FOR EVALUATION: Bradycardia. HISTORY OF PRESENT ILLNESS: Romel Flores is an 82-year-old man with a history of multiple medical problems. He came in with multiple episodes of dyspnea with dyspnea on exertion. According to him, he did not actually pass out. He was also noticing shortness of breath and he was profoundly anemic when he came in. He has also had bradycardia. He has now been transfused. He feels fine while in bed. Previously he noticed only the dizziness when he was standing. 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 SOCIAL HISTORY: He lives alone. He drinks a few beers a day. PAST SURGICAL HISTORY: Bilateral total hip replacements, hernia repair, dental extractions. PHYSICAL EXAMINATION: GENERAL: An elderly white male who does not appear to be in any acute distress. VITAL SIGNS: Charted. HEENT: Exam unremarkable. NECK: No JVD or bruits. CHEST: Shows diminished breath sounds consistent with COPD. HEART: Soft S1, normal S2. Regular rhythm. DATA: On telemetry, he has blocked PACs and occasional Wenckebach. EKG shows sinus with blocked PACs. He has got first degree AV block and left axis deviation. Chest x-ray shows cardiomegaly, bibasilar atelectasis. Previous head CTs have shown right temporal lobe encephalomalacia from a previous temporal lobe hematoma in 2010. TSH is elevated at 8.23. Troponins are negative. Hematocrit was only 23 on admission with an MCV of 76.5. Previous echo from 2015 showed mild aortic regurgitation, EF of 45-50%. IMPRESSION: 1, Profound anemia; this is in the process of being worked up. He has also had a blood transfusion. 2. Bradycardia with blocked paroxysmal atrial contractions and intermittent Wenckebach atrioventricular block. He has had moderate degree of bradycardia. At the current time is not clear the bradycardia is severe enough to warrant a pacemaker. It looks like the anemia may be actually more of the contributing factor. RECOMMENDATIONS: We will see how he does now that he has been transfused. If he continues to have dizziness with bradyarrhythmias despite correction of the anemia, he might need a pacemaker. Further therapy to be determined. MD CHYNA Soares/MAXWELL , 03:36 PM , 04:19 PM
[2018-02-13] MEDS ORDERED: VITA10002 PO (18:39)
[2018-02-13] MEDS ORDERED: LEVO50TA4 PO (18:39)
[2018-02-13] MEDS ORDERED: SULF500T34 PO (18:39)
[2018-02-13] MEDS ORDERED: TAMS0.4C4 (18:39)
[2018-02-13] MEDS ORDERED: DONE10TA7 PO (18:39)
[2018-02-13] MEDS ORDERED: METO25TA3 PO (18:39)
[2018-02-13] MEDS ORDERED: SIMV20TA PO (18:39)
[2018-02-13] MEDS ORDERED: CITA20TA4 PO (18:39)
[2018-02-13] MEDS ORDERED: AMLO10TA2 PO (18:39)
[2018-02-13] MEDS ORDERED: CHOL1TAB42 (18:39)
[2018-02-13] MEDS ORDERED: OMEP40CA2 (18:39)
[2018-02-13] MEDS ORDERED: HYDR200T3 PO (18:39)
[2018-02-13] MEDS: PANTOPRAZOLE SOD 40 MG DELAYED RELEASE TAB PO SCH (22:48)
[2018-02-14] VITALS (7 sets, daily range): BP systolic 127–183; BP diastolic 76–85; PULSE 64–75; RESP 18–20; TEMP 97.3–98.2; O2SAT 94–97
[2018-02-14] MEDS: LEVOTHYROXINE SODIUM 50 MCG TAB PO SCH (05:46)
--- NOTE | 2018-02-14 07:41 | MB ---
cc: Halina Camilo MD DATE: 02/13/2018 DATE OF SERVICE: 02/13/2018. CHIEF COMPLAINT: ` 1. Symptomatic anemia. 2. Iron deficiency. 3. Suspected gastrointestinal bleed. HISTORY OF PRESENT ILLNESS: Mr. Flores is an 82-year-old gentleman with a history of hypertension, hyperlipidemia, and closed head injury with subdural hematoma, who was admitted to the hospital with intractable dizziness and multiple episodes of near syncope. This has been progressively worsening over the past several months that is leading up to hospitalization. He reports that he felt that anytime he went to stand up, he would just fall over. He also reported shortness of breath and difficulty with catching his breath. Symptoms improve when he is resting and when he is lying down. Over the past month, this has been so severe that he has barely been able to get out of bed. He presented to the emergency room and he was noted to have bradycardia. Per report, his primary care doctor noted that his heart rate was down as low as the 40s. He was seen by the gastroenterology team, and they performed an EGD and a colonoscopy. Colonoscopy showed diverticulosis of the sigmoid, descending internal hemorrhoids, grade 2, and medium internal hemorrhoids. 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 He has also had the cardiology service see him, which revealed echocardiogram with normal sinus rhythm, possible inferior [place], age indeterminate. They reported that uncertain the etiology of his bradycardia could be secondary to beta blockers, which were recently stopped; recommended to hold all AV lawrence blockade, and recommended resolution and workup of his anemia. At the time that I am seeing him, he reports that he is feeling much better, but he is not yet back to his baseline. He is currently receiving his transfusion of a second unit of packed red blood cells. Uncertain of his baseline blood count. Daughter reports that his primary lawn care technician had told him that he would need to see a international freight forwarder in the outpatient setting. PAST MEDICAL HISTORY: Hypertension, hyperlipidemia, closed head injury with subdural hematoma, acid reflux, rheumatoid arthritis. PAST SURGICAL HISTORY: Bilateral total hip arthroplasty, hernia repair, dental extractions, left frontal guille hole for evacuation of subdural in 2010. FAMILY HISTORY: No family history of anemia or blood clots. ROS as above in HPI SOCIAL HISTORY: The patient reports past heavy tobacco use, but quit about 40 years ago. He also reports prior heavy alcohol use, but he reports that he quit several years ago. No illegal drug use. He lives alone. He has 2 daughters who live in this area who have a good support system for him. LABORATORY STUDIES: White blood cell count 4.5, hemoglobin 8.5 (7.4 on admission), platelet count is 259,000. Iron level is 17, total iron binding capacity is 403, percent sat 4.2, ferritin 26, creatinine 1.49. No abnormalities present on his coags. CT scan of the abdomen and pelvis with bilobed infrarenal abdominal aortic aneurysm measuring 3.5 cm, diverticulosis without diverticulitis, atrophic right kidney, cholelithiasis, left-sided parapelvic renal cyst, and minimal bibasilar atelectasis. PHYSICAL EXAMINATION: GENERAL: Well-developed, well-nourished, elderly man, in no distress. HEAD: Normocephalic, atraumatic. ENT: The patient is hard of hearing. Eyes with no scleral icterus. CARDIOVASCULAR: Regular rate and rhythm. No murmurs. RESPIRATORY: Clear to auscultation bilaterally. ABDOMEN: Soft, nontender, nondistended. Bowel sounds present. Extremities with no edema. NEUROLOGIC: Grossly nonfocal. PSYCHIATRIC: Appropriate mood and affect. ASSESSMENT AND PLAN: 1. Anemia secondary to iron deficiency. Hemoglobin on admission was 7.4, and it was microcytic with an MCV of 76.5. The patient also had an elevated RDW at 19.1. He is status post transfusion of 1 unit of packed red blood cells and he is currently receiving his second unit. We will follow up CBC from tomorrow. Uncertain of the patient's baseline hemoglobin. He follows closely with a primary lawn care technician in the [facility]. We will also arrange for the patient to have iron infusion while inpatient. We will place order for IV iron sucrose 200 mg IV over 3 days. Discussed side effects of IV iron including but not limited to allergic reaction. The patient will also follow up closely on the outpatient setting with hematology to ensure resolution of his anemia. Inpatient hematology service will continue to follow. MD JAZMYNE Pedroza , 07:12 AM , 07:40 AM [place]
[2018-02-14] MEDS: PANTOPRAZOLE SOD 40 MG DELAYED RELEASE TAB PO SCH ×3 (08:47→23:14)
[2018-02-14] MEDS: PRAVASTATIN SOD 40 MG TAB PO SCH (08:47)
[2018-02-14] MEDS: CITALOPRAM HYDROBROMIDE 20 MG TAB PO SCH (08:48)
[2018-02-14] MEDS: IRON SUCROSE INJ 200 MG in SODIUM CHLORIDE 0.9% INJ 100 ML IV SCH (08:51)
[2018-02-14] MEDS: DOCUSATE SODIUM 50 MG/SENNA 8.6 MG TAB PO SCH ×2 (08:51→23:14)
[2018-02-14] MEDS ORDERED: METOPROLOL TARTRATE 25 MG TAB PO SCH (09:00)
--- NOTE | 2018-02-14 09:09 | PD.CARD.PN ---
Subjective Subjective Remarks No complaints Objective Medications Current Medications Medications (Trade) Dose Ordered Sig/Sada Route Start Time Stop Time Status Last Admin (NS Flush) 2 ml UNSCH PRN IVF 02/12/18 12:00 (Zofran Inj) 4 mg Q6H PRN IVP 02/12/18 16:30 (Tylenol) 650 mg Q6H PRN PO 02/12/18 16:30 ([place] 5-325 Mg) 1 tab Q8H PRN PO 02/12/18 16:30 (Charo-Colace) 1 tab BID PO 02/12/18 21:00 02/12/18 23:44 (Milk Of Magnesia Liq) 30 ml Q12H PRN PO 02/12/18 16:30 (Senokot) 17.2 mg Q12H PRN PO 02/12/18 16:30 (Dulcolax Supp) 10 mg DAILY PRN RECTAL 02/12/18 16:30 (Lactulose Liq) 30 ml DAILY PRN PO 02/12/18 16:30 Lactated Ringer's 1,000 ml @ 30 mls/hr Q24H PRN IV 02/13/18 02:30 02/16/18 02:29 Sodium Chloride 500 ml @ 30 mls/hr [id number] PRN IV 02/13/18 02:30 02/16/18 02:29 (Betadine 5% Antisepsis Kit) 1 applic AUTO WHEEL ALIGNMENT SPECIALIST PRN EACH NARE 02/13/18 02:30 02/16/18 02:29 (Chlorhexidine 2% Cloth) 3 pack AUTO WHEEL ALIGNMENT SPECIALIST PRN TOPICAL 02/13/18 02:30 02/16/18 02:29 (Protonix) 40 mg Q12HR PO 02/13/18 21:00 02/14/18 08:47 (CeleXA) 20 mg DAILY PO 02/14/18 09:00 02/14/18 08:48 (Aricept) 10 mg HS PO 02/14/18 21:00 (Synthroid) 50 mcg DAILY@0600 PO 02/14/18 06:00 02/14/18 05:46 (Flomax) 0.4 mg HS PO 02/14/18 21:00 (Protonix) 40 mg DAILY PO 02/14/18 09:00 (Pravachol) 40 mg DAILY PO 02/14/18 09:00 02/14/18 08:47 (Norvasc) 10 mg DAILY PO 02/14/18 06:00 02/14/18 08:47 Iron Sucrose 200 mg/Sodium Chloride 110 ml @ 110 mls/hr DAILY IV 02/14/18 09:00 02/16/18 09:59 02/14/18 08:51 Vital Signs / I&O Vital Signs Date Time Temp Pulse Resp B/P (MAP) Pulse Ox O2 Delivery O2 Flow Rate FiO2 02/14/18 07:23 97.3 70 18 160/83 (108) 95 02/14/18 04:54 97.5 68 20 183/85 (117) 96 02/13/18 23:35 97.9 76 20 149/76 (100) 95 02/13/18 18:02 97.6 63 16 174/79 02/13/18 17:48 98.0 67 16 169/77 02/13/18 15:36 97.8 58 16 166/75 (105) 100 02/13/18 13:26 96.9 59 18 140/66 (90) 97 I/O 02/13/18 02/13/18 02/13/18 02/14/18 02/14/18 02/14/18 07:00 15:00 23:00 07:00 15:00 23:00 Intake Total 900 ml 150 ml 400 ml Output Total 500 ml Balance 900 ml 150 ml -100 ml Packed Cells 800 ml 400 ml Blood Product IV Normal Saline Flush 100 ml Other 150 ml Output Urine Total 500 ml Physical Exam Alert Chest clear CV soft S1, nl S2 RRR Abd soft Tele: SR sinus iris. First and asecond degree AV block. Short pauses mostly from blocked PAC's Laboratory Laboratory Tests Test 02/12/18 12:10 02/13/18 06:25 Prothrombin Time 10.9 SEC Prothromb Time International Ratio 1.1 RATIO Activated Partial Thromboplast Time 26.8 SEC Blood Urea Nitrogen 29 MG/DL 24 MG/DL Creatinine 1.95 MG/DL 1.49 MG/DL Random Glucose 86 MG/DL 70 MG/DL Calcium Level 8.5 MG/DL 8.0 MG/DL Magnesium Level 2.1 MG/DL Sodium Level 141 MEQ/L 141 MEQ/L Potassium Level 4.1 MEQ/L 4.3 MEQ/L Chloride Level 111 MEQ/L 112 MEQ/L Carbon Dioxide Level 20.8 MEQ/L 20.7 MEQ/L Iron Level 17 MCG/DL Total Iron Binding Capacity 403 MCG/DL Percent Iron Saturation 4.2 % Ferritin 26 NG/ML Total Creatine Kinase 46 U/L Troponin I LESS THAN 0.02 NG/ML Thyroid Stimulating Hormone 3rd Gen 8.230 uIU/ML White Blood Count 4.5 TH/MM3 Red Blood Count 3.36 MIL/MM3 Hemoglobin 8.5 GM/DL Hematocrit 26.3 % Mean Corpuscular Volume 78.3 FL Mean Corpuscular Hemoglobin 25.3 PG Mean Corpuscular Hemoglobin Concent 32.3 % Red Cell Distribution Width 18.7 % Platelet Count 259 TH/MM3 Mean Platelet Volume 7.2 FL Neutrophils (%) (Auto) 64.7 % Lymphocytes (%) (Auto) 13.6 % Monocytes (%) (Auto) 14.3 % Eosinophils (%) (Auto) 5.8 % Basophils (%) (Auto) 1.6 % Neutrophils # (Auto) 2.9 TH/MM3 Lymphocytes # (Auto) 0.6 TH/MM3 Monocytes # (Auto) 0.6 TH/MM3 Eosinophils # (Auto) 0.3 TH/MM3 Basophils # (Auto) 0.1 TH/MM3 CBC Comment DIFF FINAL Differential Comment Anion Gap 8 MEQ/L Estimat Glomerular Filtration Rate 45 ML/MIN B-Type Natriuretic Peptide 345 PG/ML Free Thyroxine 1.01 NG/DL Imaging Last 48 hours Impressions Abdomen/Pelvis CT 02/13/18 0000 Signed Impressions: Service Date/Time: Tuesday, February 13, 2018 15:51 - CONCLUSION: 1. Bilobed infrarenal abdominal aortic aneurysm measuring 3.5 cm in maximum dimension. 2. Diverticulosis without diverticulitis. 3. Atrophic right kidney. 4. Cholelithiasis. 5. Left-sided parapelvic renal cyst. 6. Minimal bibasilar atelectasis. Ty Rubin MD Chest X-Ray 02/12/18 1159 Signed Impressions: Service Date/Time: January 12:45 - CONCLUSION: Bibasilar subsegmental atelectasis. Ty Rubin MD Assessment and Plan Problem List: (1) Hypertension ICD Codes: I10 - Essential (primary) hypertension (2) Bradycardia ICD Codes: R00.1 - Bradycardia, unspecified (3) First degree atrioventricular block ICD Codes: I44.0 - Atrioventricular block, first degree (4) Mobitz type I Wenckebach atrioventricular block ICD Codes: I44.1 - Atrioventricular block, second degree (5) Iron deficiency anemia ICD Codes: D50.9 - Iron deficiency anemia, unspecified Assessment and Plan Discontinue metoprolol. Does not need a pacemaker at this time. I am signing off - please call if I can help. Hudson Freedman MD Feb 14, 2018 09:09
--- NOTE | 2018-02-14 09:23 | EKG ---
Date Performed: 02/12/2018 Time Performed: 12:06:40 PTAGE: 82 years EKG: Sinus rhythm WITH MARKED SINUS ARRHYTHMIA WITH FIRST DEGREE AV BLOCK BORDERLINE LEFT AXIS DEVIATION ABNORMAL ECG PREVIOUS TRACING : 02/06/2011 04.15 DOCTOR: Rk Elena Interpretating Date/Time 02/14/2018 09:17:42
[2018-02-14 09:45] LABS: AUTOMATED NEUTROPHIL # 4.2 TH/MM3 (1.8-7.7); BASOPHIL # 0.1 TH/MM3 (0-0.2); BASOPHIL % 1.1 % (0.0-2.0); EOSINOPHIL # 0.2 TH/MM3 (0-0.4); EOSINOPHIL % 4.1 % (0.0-4.0); HEMATOCRIT 29.4 % (39.0-51.0); HEMOGLOBIN 9.5 GM/DL (13.0-17.0); LYMPH % 10.2 % (9.0-44.0); LYMPHOCYTE # 0.6 TH/MM3 (1.0-4.8); MEAN CELL VOLUME 78.9 FL (80.0-100.0); MEAN CORPUSCULAR HEMOGLOBIN 25.7 PG (27.0-34.0); MEAN CORPUSCULAR HGB CONC 32.5 % (32.0-36.0); MEAN PLATELET VOLUME 7.6 FL (7.0-11.0); MONO % 11.2 % (0.0-8.0); MONOCYTE # 0.6 TH/MM3 (0-0.9); NEUT % 73.4 % (16.0-70.0); PLATELET COUNT 268 TH/MM3 (150-450); RED BLOOD COUNT 3.72 MIL/MM3 (4.50-5.90); RED CELL DISTRIBUTION WIDTH 19.5 % (11.6-17.2); WHITE BLOOD COUNT 5.7 TH/MM3 (4.0-11.0)
[2018-02-14 09:55] LABS: BICARBONATE 19.7 MEQ/L (21.0-32.0); CALCIUM 8.4 MG/DL (8.5-10.1); CREATININE 1.23 MG/DL (0.60-1.30)
--- NOTE | 2018-02-14 10:44 | PD.ONC.PN ---
Subjective Subjective Remarks Afebrile overnight. Patient resting in bed in nad. 2 daughters at bedside. patient states he feels pretty good. states he thinks he won't feel all the way improved until he is at home again. Objective Data Date Time Temp Pulse Resp B/P (MAP) Pulse Ox O2 Delivery O2 Flow Rate FiO2 02/14/18 07:23 97.3 70 18 160/83 (108) 95 02/14/18 04:54 97.5 68 20 183/85 (117) 96 02/13/18 23:35 97.9 76 20 149/76 (100) 95 02/13/18 18:02 97.6 63 16 174/79 02/13/18 17:48 98.0 67 16 169/77 02/13/18 15:36 97.8 58 16 166/75 (105) 100 02/13/18 13:26 96.9 59 18 140/66 (90) 97 Result Diagram: 02/14/18 0810 02/14/18 0810 Laboratory Results Laboratory Tests Test 02/14/18 08:10 White Blood Count 5.7 TH/MM3 Red Blood Count 3.72 MIL/MM3 Hemoglobin 9.5 GM/DL Hematocrit 29.4 % Mean Corpuscular Volume 78.9 FL Mean Corpuscular Hemoglobin 25.7 PG Mean Corpuscular Hemoglobin Concent 32.5 % Red Cell Distribution Width 19.5 % Platelet Count 268 TH/MM3 Mean Platelet Volume 7.6 FL Neutrophils (%) (Auto) 73.4 % Lymphocytes (%) (Auto) 10.2 % Monocytes (%) (Auto) 11.2 % Eosinophils (%) (Auto) 4.1 % Basophils (%) (Auto) 1.1 % Neutrophils # (Auto) 4.2 TH/MM3 Lymphocytes # (Auto) 0.6 TH/MM3 Monocytes # (Auto) 0.6 TH/MM3 Eosinophils # (Auto) 0.2 TH/MM3 Basophils # (Auto) 0.1 TH/MM3 CBC Comment DIFF FINAL Differential Comment Blood Urea Nitrogen 21 MG/DL Creatinine 1.23 MG/DL Random Glucose 71 MG/DL Calcium Level 8.4 MG/DL Sodium Level 139 MEQ/L Potassium Level 4.1 MEQ/L Chloride Level 109 MEQ/L Carbon Dioxide Level 19.7 MEQ/L Anion Gap 10 MEQ/L Estimat Glomerular Filtration Rate 56 ML/MIN Administered Medications Medications (Trade) Dose Ordered Sig/Sada Route PRN Reason Start Time Stop Time Status Last Admin Dose Admin Senna/Docusate Sodium (Charo-Colace) 1 tab BID PO 02/12/18 21:00 02/12/18 23:44 Pantoprazole Sodium (Protonix) 40 mg Q12HR PO 02/13/18 21:00 02/14/18 08:47 Citalopram Hydrobromide (CeleXA) 20 mg DAILY PO 02/14/18 09:00 02/14/18 08:48 Levothyroxine Sodium (Synthroid) 50 mcg DAILY@0600 PO 02/14/18 06:00 02/14/18 05:46 Pravastatin Sodium (Pravachol) 40 mg DAILY PO 02/14/18 09:00 02/14/18 08:47 Amlodipine Besylate (Norvasc) 10 mg DAILY PO 02/14/18 06:00 02/14/18 08:47 Iron Sucrose 200 mg/Sodium Chloride 110 ml @ 110 mls/hr DAILY IV 02/14/18 09:00 02/16/18 09:59 02/14/18 08:51 Objective Remarks GENERAL: Pleasant elderly male, sitting up in bed in [facility]. SKIN: Warm and dry. HEAD: Normocephalic. EYES: No injection or drainage. NECK: Supple, trachea midline. CARDIOVASCULAR: +S1/S2, bradycardic. RESPIRATORY: Breath sounds equal bilaterally. No accessory muscle use. GASTROINTESTINAL: Abdomen soft, non-tender, nondistended. EXTREMITIES: No cyanosis NEUROLOGICAL: awake and alert. no obvious focal deficit. Assessment/Plan Problem List: (1) Symptomatic anemia ICD Codes: D64.9 - Anemia, unspecified Plan: --iron studies show iron deficiency anemia. --Colonoscopy showed diverticulosis of the sigmoid, descending internal hemorrhoids, grade 2, and medium internal hemorrhoids. 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 history of hypertension, hyperlipidemia, and closed head injury with subdural hematoma, acid reflux, rheumatoid arthritis. Bilateral total hip arthroplasty, hernia repair, dental extractions, left frontal guille hole for evacuation of subdural in 2010. echocardiogram with normal sinus rhythm, possible inferior [place], age indeterminate. etiology of his bradycardia could be secondary to beta blockers, which were recently stopped; recommended to hold all AV lawrence blockade Plan 1. continue iron sucrose therapy 2. monitor H/H 3. follow up with hematology upon discharge--face sheet faxed to new patient referrals. Vee Peña Feb 14, 2018 10:44
--- NOTE | 2018-02-14 11:31 | HHI.PR ---
Subjective Remarks in no acute distress. denies pain. no sob or dizziness. Objective Vitals Vital Signs Date Time Temp Pulse Resp B/P (MAP) Pulse Ox O2 Delivery O2 Flow Rate FiO2 02/14/18 07:23 97.3 70 18 160/83 (108) 95 02/14/18 04:54 97.5 68 20 183/85 (117) 96 02/13/18 23:35 97.9 76 20 149/76 (100) 95 02/13/18 18:02 97.6 63 16 174/79 02/13/18 17:48 98.0 67 16 169/77 02/13/18 15:36 97.8 58 16 166/75 (105) 100 02/13/18 13:26 96.9 59 18 140/66 (90) 97 I/O 02/13/18 02/13/18 02/13/18 02/14/18 02/14/18 02/14/18 07:00 15:00 23:00 07:00 15:00 23:00 Intake Total 900 ml 150 ml 400 ml Output Total 500 ml Balance 900 ml 150 ml -100 ml Packed Cells 800 ml 400 ml Blood Product IV Normal Saline Flush 100 ml Other 150 ml Output Urine Total 500 ml Result Diagram: 02/14/18 0810 02/14/18 0810 Imaging Last Impressions Abdomen/Pelvis CT 02/13/18 0000 Signed Impressions: Service Date/Time: Tuesday, February 13, 2018 15:51 - CONCLUSION: 1. Bilobed infrarenal abdominal aortic aneurysm measuring 3.5 cm in maximum dimension. 2. Diverticulosis without diverticulitis. 3. Atrophic right kidney. 4. Cholelithiasis. 5. Left-sided parapelvic renal cyst. 6. Minimal bibasilar atelectasis. Ty Rubin MD Chest X-Ray 02/12/18 1159 Signed Impressions: Service Date/Time: January 12:45 - CONCLUSION: Bibasilar subsegmental atelectasis. Ty Rubin MD Head CT 02/12/18 0000 Signed Impressions: Service Date/Time: January 12:30 - CONCLUSION: 1. No acute intracranial abnormality is identified. 2. Stable chronic findings include mild generalized atrophy and mild periventricular white matter low attenuation characteristic of chronic microvascular ischemia. 3. 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 Romel Roberson MD Objective Remarks GENERAL: elderly male, in no apparent distress. CARDIOVASCULAR: Regular rate and regular rhythm without murmurs, gallops, or rubs. RESPIRATORY: Clear to auscultation. Breath sounds equal bilaterally. No wheezes , rales, or rhonchi. GASTROINTESTINAL: Abdomen soft, non-tender, nondistended. Normal, active bowel sounds MUSCULOSKELETAL: Extremities without clubbing, cyanosis, or edema. NEURO: Alert & Oriented x4 to person, place, time, situation. Moves all ext x4 Procedures EGD/ colonoscopy. Medications and IVs Inpatient Medications Acetaminophen (Tylenol) 650 mg Q6H PRN PO headache/fever/pain1-4; Start at 16:30 Acetaminophen/ Hydrocodone Bitart ([place] 5-325 Mg) 1 tab Q8H PRN PO pain 5-10 ; Start 02/12/18 at 16:30 Amlodipine Besylate (Norvasc) 10 mg DAILY PO Last administered on 02/14/18at 08: 47; Start 02/14/18 at 06:00 Bisacodyl (Dulcolax Supp) 10 mg DAILY PRN RECTAL SEVERE CONSITIPATION; Start at 16:30 Chlorhexidine Gluconate (Chlorhexidine 2% Cloth) 3 pack LAST REPAIRER HELPER PRN TOPICAL SEE LABEL COMMENTS; Start 02/13/18 at 02:30; Stop 02/16/18 at 02:29 Citalopram Hydrobromide (CeleXA) 20 mg DAILY PO Last administered on 02/14/18at 08:48; Start 02/14/18 at 09:00 Donepezil HCl (Aricept) 10 mg HS PO ; Start 02/14/18 at 21:00 Epinephrine HCl (EPINEPHrine (1:10,000) INJ) 1 mg ONCE ONCE OTHER Last administered on 02/13/18at 13:45; Start 02/13/18 at 13:43; Stop 02/13/18 at 13:45 ; Status DC Iron Sucrose 200 mg/Sodium Chloride 110 ml @ 110 mls/hr DAILY IV Last administered on 02/14/18at 08:51; Start 02/14/18 at 09:00; Stop 02/16/18 at 09:59 Lactated Ringer's 1,000 ml @ 30 mls/hr Q24H PRN IV SEE LABEL COMMENTS; Start at 02:30; Stop 02/16/18 at 02:29 Lactulose (Lactulose Liq) 30 ml DAILY PRN PO SEVERE CONSITIPATION; Start at 16:30 Levothyroxine Sodium (Synthroid) 50 mcg DAILY@0600 PO Last administered on 02/14at 05:46; Start 02/14/18 at 06:00 Magnesium Hydroxide (Milk Of Magnesia Liq) 30 ml Q12H PRN PO Mild constipation ; Start 02/12/18 at 16:30 Metoprolol Tartrate (Lopressor) 25 mg DAILY PO ; Start 02/14/18 at 09:00; Stop 02/14/18 at 09:03; Status DC Ondansetron HCl (Zofran Inj) 4 mg Q6H PRN IVP NAUSEA OR VOMITING; Start at 16:30 Pantoprazole Sodium (Protonix) 40 mg DAILY PO ; Start 02/14/18 at 09:00 Polyethylene Glycol/ Electrolytes (Colyte Liq) 4,000 ml ONCE ONCE PO Last administered on 02/13/18at 04:25; Start 02/12/18 at 16:45; Stop 02/12/18 at 16:48 ; Status DC Povidone Iodine (Betadine 5% Antisepsis Kit) 1 applic LAST REPAIRER HELPER PRN EACH NARE SEE LABEL COMMENTS; Start 02/13/18 at 02:30; Stop 02/16/18 at 02:29 Pravastatin Sodium (Pravachol) 40 mg DAILY PO Last administered on 02/14/18at 08 :47; Start 02/14/18 at 09:00 Senna/Docusate Sodium (Charo-Colace) 1 tab BID PO Last administered on at 23:44; Start 02/12/18 at 21:00 Sennosides (Senokot) 17.2 mg Q12H PRN PO Moderate constipation; Start 02/12/18 at 16:30 Sodium Chloride 500 ml @ 30 mls/hr [id number] PRN IV SEE LABEL COMMENTS; Start at 02:30; Stop 02/16/18 at 02:29 Sodium Chloride (NS Flush) 2 ml UNSCH PRN IVF FLUSH AFTER USING IV ACCESS; Start 02/12/18 at 12:00 Tamsulosin HCl (Flomax) 0.4 mg HS PO ; Start 02/14/18 at 21:00 A/P Problem List: (1) Anemia ICD Code: D64.9 - Anemia, unspecified Status: Acute (2) Postural dizziness with near syncope ICD Code: R42 - Dizziness and giddiness; R55 - Syncope and collapse Status: Acute Assessment and Plan A/P Near Syncope/Dizziness: suspect secondary Bradycardia. Patient reportedly with HR in 40s at PCP office. -Head CT images reviewed, no acute findings, mild generalized atrophy, chronic microvascular ischemia; stable encephalomalacia right temporal lobe -EKG reviewed, shows sinus rhythm with 1st degree AV block -Monitor on telemetry - echocardiogram pending. -no BB -cardiology f/u appreciated- f/u as outpatient. -Consulted PT Symptomatic Anemia- hypochromic/ microcytic- -s/p PRBC transfusion with improved H/H -GI consult appreciated- -s/p EGD with : Stricture duodenal bulb , ulcer with vissible vessel ,oozing slightly when touched-2 clips applied, 3 cc of epinephrine injected-no further bleeding.gastritis antrum-biopsy.esophagitis distal esophagus-biopsy. -s/p colonoscopy with diverticulosis and internal/external hemorrhoids. -continue PPI - Hematology consult appreciated; started on IV Iron- f/u with hematology as outpatient. -continue to monitor H/H and transfuse as needed. acute kidney injury -improved after PRBC transfusion and IVF -continue to monitor. elevated TSH/ hypothyroidism; start on Levothyroxine- f/u as outpatient. abdominal aortic aneurysm- f/u as outpatient. HTN/HLD: chronic -RN to update home meds, will restart -monitor BP, adjust antihypertensives as needed DNR status per my d/w the daughters. DVT Prophylaxis: teds/SCDs; avoid chemoprophylaxis with anemia Discharge Planning dc planning within the next 24 hrs if stable and cleared by GI. Problem Qualifiers (1) Anemia: Qualified Codes: D64.9 - Anemia, unspecified Karon Watson MD Feb 14, 2018 11:31
--- NOTE | 2018-02-14 13:48 | ECHRPT ---
Indication: SHORTNESS OF BREATH CONCLUSIONS Mildly dilated left ventricle. Mild concentric left ventricular hypertrophy. The left atrial size is [id number] dilated. The right atrial size is zlng-yw-pfgimnzqxi dilated. Aortic valve sclerosis is present. Mild aortic valve regurgitation. There is mild tricuspid valve regurgitation. The estimated pulmonary arterial pressure is 43.6 mmHg. BP: 148 / 66 HR: 60 Rhythm: Sinus MEASUREMENTS (Male / Female) Normal Values Technical Quality:Fair 2D ECHO LV Diastolic Diameter PLAX 6.0 cm 4.2 - 5.9 / 3.9 - 5.3 cm LV Systolic Diameter PLAX 3.9 cm IVS Diastolic Thickness 1.3 cm 0.6 - 1.0 / 0.6 - 0.9 cm LVPW Diastolic Thickness 1.3 cm 0.6 - 1.0 / 0.6 - 0.9 cm LV Relative Wall Thickness 0.4 RV Internal Dim ED PLAX 2.4 cm LVOT Diameter 2.4 cm Aortic Root Diameter 3.8 cm LA Systolic Diameter LX 5.1 cm 3.0 - 4.0 / 2.7 - 3.8 cm DOPPLER AV Peak Velocity 163.0 cm/s AV Peak Gradient 10.6 mmHg AV Mean Gradient 5.0 mmHg AV Velocity Time Integral 34.0 cm LVOT Peak Velocity 85.0 cm/s LVOT Peak Gradient 2.9 mmHg LVOT Velocity Time Integral 17.2 cm AV Area Cont Eq vti 2.3 cm AV Area Cont Eq pk 2.4 cm Mitral E Point Velocity 81.9 cm/s Mitral A Point Velocity 92.8 cm/s Mitral E to A Ratio 0.9 LV E' Lateral Velocity 13.2 cm/s Mitral E to LV E' Lateral Ratio 6.2 LV E' Septal Velocity 8.8 cm/s Mitral E to LV E' Septal Ratio 9.3 TR Peak Velocity 290.0 cm/s TR Peak Gradient 33.6 mmHg Right Atrial Pressure 10.0 mmHg Pulmonary Artery Systolic Pressu 43.6 mmHg Right Ventricular Systolic Press 43.6 mmHg FINDINGS LEFT VENTRICLE Mildly dilated left ventricle. Mild concentric left ventricular hypertrophy. The left ventricular systolic function is normal with an estimated ejection fraction in the range of 60-65%. RIGHT VENTRICLE Normal right ventricular size and systolic function. LEFT ATRIUM The left atrial size is [id number]-pr-fyyhljxhbo dilated. RIGHT ATRIUM The right atrial size is azdf-vj-fodfutgiex dilated. ATRIAL SEPTUM The interatrial septum not well visualized. AORTA The aortic root and proximal ascending aorta are normal in size on limited imaging. MITRAL VALVE Mild mitral valve regurgitation. AORTIC VALVE Aortic valve sclerosis is present. Mild aortic valve regurgitation. TRICUSPID VALVE There is mild tricuspid valve regurgitation. The estimated pulmonary arterial pressure is 43.6 mmHg. PULMONARY VALVE The pulmonary valve is not well visualized. VESSELS The inferior vena cava was not well visualized. PERICARDIUM No pericardial effusion. Rk Elena MD (Electronically Signed) Final Date:14 February 2018 13:47
[2018-02-14] MEDS ORDERED: DONEPEZIL HCL 5 MG TAB PO SCH (21:00)
[2018-02-14] MEDS ORDERED: TAMSULOSIN HCL 0.4 MG CAP PO SCH (21:00)
[2018-02-15] VITALS: BP 150/84; PULSE 76; RESP 20; TEMP 98.2; O2SAT 95
[2018-02-15] MEDS: LEVOTHYROXINE SODIUM 50 MCG TAB PO SCH (05:43)
[2018-02-15 08:24] VITALS: BP 136/80; PULSE 80; RESP 20; TEMP 98.2; O2SAT 97
[2018-02-15 08:30] VITALS: PULSE 55
[2018-02-15 08:35] LABS: AUTOMATED NEUTROPHIL # 4.1 TH/MM3 (1.8-7.7); BASOPHIL # 0.1 TH/MM3 (0-0.2); BASOPHIL % 1.5 % (0.0-2.0); EOSINOPHIL # 0.3 TH/MM3 (0-0.4); EOSINOPHIL % 4.7 % (0.0-4.0); HEMOGLOBIN 9.9 GM/DL (13.0-17.0); LYMPH % 12.5 % (9.0-44.0); LYMPHOCYTE # 0.8 TH/MM3 (1.0-4.8); MEAN CELL VOLUME 79.2 FL (80.0-100.0); MEAN CORPUSCULAR HEMOGLOBIN 26.1 PG (27.0-34.0); MEAN CORPUSCULAR HGB CONC 32.9 % (32.0-36.0); MONO % 15.1 % (0.0-8.0); MONOCYTE # 0.9 TH/MM3 (0-0.9); NEUT % 66.2 % (16.0-70.0); PLATELET COUNT 249 TH/MM3 (150-450); RED BLOOD COUNT 3.78 MIL/MM3 (4.50-5.90); RED CELL DISTRIBUTION WIDTH 19.4 % (11.6-17.2); WHITE BLOOD COUNT 6.1 TH/MM3 (4.0-11.0)
--- NOTE | 2018-02-15 09:31 | HHI.DS ---
Discharge Summary Admission Date Feb 13, 2018 at 16:17 Discharge Date: Feb 15, 2018 Admitting Diagnosis Near syncope; SOB; anemia (1) Anemia ICD Code: D64.9 - Anemia, unspecified Diagnosis: Principal Status: Acute (2) Postural dizziness with near syncope ICD Code: R42 - Dizziness and giddiness; R55 - Syncope and collapse Diagnosis: Principal Status: Acute Procedures EGD/ colonoscopy. Brief History - From Admission Written by Amber Strong, acting as scribe for Dr. Watson on 02/12/18 at 15: 24. 82-year-old male with history of HTN, HLD, anemia, closed head injury with subdural hematoma, presents with ongoing intractable dizziness and multiple episodes of near syncope. The patient reports over the past multiple months he has been experiencing dizziness, worse upon ambulation, and feels as though he' s going to fall over. He reports some associated shortness of breath and difficulty catching his breath. He reports weakness of bilateral legs associated with the dizziness. Symptoms improve when lying down and while at rest. His last fall was one month ago and he was unable to get off the floor. He states over the past month he hasn't been participating in much activity because he becomes dizzy. He states he just stays home most of the time. Occasionally he will go shopping at [employer] but has to rest multiple times while shopping. The patient states he had a severe episode awhile ago where he fell and suffered a head injury. He denies any complete loss of consciousness but does report multiple episodes of near syncope. Denies any other medical complaints including no chest pain, palpitations, abdominal pain, nausea/ vomiting, or diarrhea. He uses a cane for ambulation. The patient was reportedly seen by his PCP yesterday who noted the patient to have bradycardia with HR in the 40s. He denies any history of heart disease. He denies any other medical complaints. CBC/BMP: 02/15/18 0620 02/14/18 0810 Significant Findings Laboratory Tests Test 02/12/18 12:10 02/13/18 06:25 4/21/18 08:10 02/15/18 06:20 Red Blood Count 3.01 MIL/MM3 (4.50-5.90) 3.36 MIL/MM3 (4.50-5.90) 3.72 MIL/MM3 (4.50-5.90) 3.78 MIL/MM3 (4.50-5.90) Hemoglobin 7.4 GM/DL (13.0-17.0) 8.5 GM/DL (13.0-17.0) 9.5 GM/DL (13.0-17.0) 9.9 GM/DL (13.0-17.0) Hematocrit 23.0 % (39.0-51.0) 26.3 % (39.0-51.0) 29.4 % (39.0-51.0) 30.0 % (39.0-51.0) Mean Corpuscular Volume 76.5 FL (80.0-100.0) 78.3 FL (80.0-100.0) 78.9 FL (80.0-100.0) 79.2 FL (80.0-100.0) Mean Corpuscular Hemoglobin 24.4 PG (27.0-34.0) 25.3 PG (27.0-34.0) 25.7 PG (27.0-34.0) 26.1 PG (27.0-34.0) Mean Corpuscular Hemoglobin Concent 31.9 % (32.0-36.0) Red Cell Distribution Width 19.1 % (11.6-17.2) 18.7 % (11.6-17.2) 19.5 % (11.6-17.2) 19.4 % (11.6-17.2) Neutrophils (%) (Auto) 72.4 % (16.0-70.0) 73.4 % (16.0-70.0) Monocytes (%) (Auto) 11.0 % (0.0-8.0) 14.3 % (0.0-8.0) 11.2 % (0.0-8.0) 15.1 % (0.0-8.0) Blood Urea Nitrogen 29 MG/DL (7-18) 24 MG/DL (7-18) 21 MG/DL (7-18) Creatinine 1.95 MG/DL (0.60-1.30) 1.49 MG/DL (0.60-1.30) Chloride Level 111 MEQ/L (98-107) 112 MEQ/L (98-107) 109 MEQ/L (98-107) Carbon Dioxide Level 20.8 MEQ/L (21.0-32.0) 20.7 MEQ/L (21.0-32.0) 19.7 MEQ/L (21.0-32.0) Estimat Glomerular Filtration Rate 33 ML/MIN (>89) 45 ML/MIN (>89) 56 ML/MIN (>89) Iron Level 17 MCG/DL (65-175) Percent Iron Saturation 4.2 % (20-50) Troponin I LESS THAN 0.02 NG/ML Thyroid Stimulating Hormone 3rd Gen 8.230 uIU/ML (0.358-3.740) Eosinophils (%) (Auto) 5.8 % (0.0-4.0) 4.1 % (0.0-4.0) 4.7 % (0.0-4.0) Lymphocytes # (Auto) 0.6 TH/MM3 (1.0-4.8) 0.6 TH/MM3 (1.0-4.8) 0.8 TH/MM3 (1.0-4.8) Random Glucose 70 MG/DL (74-106) 71 MG/DL (74-106) Calcium Level 8.0 MG/DL (8.5-10.1) 8.4 MG/DL (8.5-10.1) B-Type Natriuretic Peptide 345 PG/ML (0-100) Imaging Last Impressions Abdomen/Pelvis CT 02/13/18 0000 Signed Impressions: Service Date/Time: Tuesday, February 13, 2018 15:51 - CONCLUSION: 1. Bilobed infrarenal abdominal aortic aneurysm measuring 3.5 cm in maximum dimension. 2. Diverticulosis without diverticulitis. 3. Atrophic right kidney. 4. Cholelithiasis. 5. Left-sided parapelvic renal cyst. 6. Minimal bibasilar atelectasis. Ty Rubin MD Chest X-Ray 02/12/18 1159 Signed Impressions: Service Date/Time: January 12:45 - CONCLUSION: Bibasilar subsegmental atelectasis. Ty Rubin MD Head CT 02/12/18 0000 Signed Impressions: Service Date/Time: January 12:30 - CONCLUSION: 1. No acute intracranial abnormality is identified. 2. Stable chronic findings include mild generalized atrophy and mild periventricular white matter low attenuation characteristic of chronic microvascular ischemia. 3. 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 Romel Roberson MD PE at Discharge GENERAL: elderly male, in no apparent distress. CARDIOVASCULAR: Regular rate and regular rhythm without murmurs, gallops, or rubs. RESPIRATORY: Clear to auscultation. Breath sounds equal bilaterally. No wheezes , rales, or rhonchi. GASTROINTESTINAL: Abdomen soft, non-tender, nondistended. Normal, active bowel sounds MUSCULOSKELETAL: Extremities without clubbing, cyanosis, or edema. NEURO: Alert & Oriented x4 to person, place, time, situation. Moves all ext x4 Hospital Course Near Syncope/Dizziness: suspect secondary Bradycardia. Patient reportedly with HR in 40s at PCP office. -Head CT images reviewed, no acute findings, mild generalized atrophy, chronic microvascular ischemia; stable encephalomalacia right temporal lobe -EKG reviewed, shows sinus rhythm with 1st degree AV block -Monitor on telemetry - echocardiogram with EF 60%. -no BB -cardiology f/u appreciated- f/u as outpatient. -Consulted PT Symptomatic Anemia- hypochromic/ microcytic- -s/p PRBC transfusion with improved and stable H/H -GI consult appreciated- -s/p EGD with : Stricture duodenal bulb , ulcer with vissible vessel ,oozing slightly when touched-2 clips applied, 3 cc of epinephrine injected-no further bleeding.gastritis antrum-biopsy.esophagitis distal esophagus-biopsy. -s/p colonoscopy with diverticulosis and internal/external hemorrhoids. -continue PPI - Hematology consult appreciated; started on IV Iron- f/u with hematology as outpatient. acute kidney injury -improved after PRBC transfusion and IVF -continue to monitor. elevated TSH/ hypothyroidism; continue Levothyroxine- f/u as outpatient. abdominal aortic aneurysm- f/u as outpatient. ( the family are aware; patient is being followed-up for it). HTN/HLD: chronic -resumed home meds. -monitor BP, adjust antihypertensives as needed DNR status per my d/w the daughters. Pt Condition on Discharge: Fair Discharge Disposition: Discharge Home Discharge Time: <= 30 minutes Karon Watson MD Feb 15, 2018 09:31
--- NOTE | 2018-02-15 09:31 | HHI.PR ---
Subjective Remarks in no acute distress. resting comfortably with no pain, nausea, vomiting. no new complaints. Objective Vitals Vital Signs Date Time Temp Pulse Resp B/P (MAP) Pulse Ox O2 Delivery O2 Flow Rate FiO2 02/15/18 08:24 98.2 80 20 136/80 (98) 97 02/15/18 00:00 98.2 76 20 150/84 (106) 95 02/14/18 20:00 98.2 74 20 127/84 (98) 97 02/14/18 16:00 98.2 64 18 148/78 (101) 95 02/14/18 15:14 75 02/14/18 12:00 97.7 68 18 133/76 (95) 94 02/14/18 10:51 72 I/O 02/14/18 02/14/18 02/14/18 02/15/18 02/15/18 02/15/18 07:00 15:00 23:00 07:00 15:00 23:00 Intake Total 240 ml Output Total 300 ml Balance -60 ml Intake Oral 240 ml Output Urine Total 300 ml # Voids 1 2 # Bowel Movements 1 Result Diagram: 02/15/18 0620 02/14/18 0810 Imaging Last Impressions Abdomen/Pelvis CT 02/13/18 0000 Signed Impressions: Service Date/Time: Tuesday, February 13, 2018 15:51 - CONCLUSION: 1. Bilobed infrarenal abdominal aortic aneurysm measuring 3.5 cm in maximum dimension. 2. Diverticulosis without diverticulitis. 3. Atrophic right kidney. 4. Cholelithiasis. 5. Left-sided parapelvic renal cyst. 6. Minimal bibasilar atelectasis. Ty Rubin MD Chest X-Ray 02/12/18 1159 Signed Impressions: Service Date/Time: January 12:45 - CONCLUSION: Bibasilar subsegmental atelectasis. Ty Rubin MD Head CT 02/12/18 0000 Signed Impressions: Service Date/Time: January 12:30 - CONCLUSION: 1. No acute intracranial abnormality is identified. 2. Stable chronic findings include mild generalized atrophy and mild periventricular white matter low attenuation characteristic of chronic microvascular ischemia. 3. 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 Romel Roberson MD Objective Remarks GENERAL: elderly male, in no apparent distress. CARDIOVASCULAR: Regular rate and regular rhythm without murmurs, gallops, or rubs. RESPIRATORY: Clear to auscultation. Breath sounds equal bilaterally. No wheezes , rales, or rhonchi. GASTROINTESTINAL: Abdomen soft, non-tender, nondistended. Normal, active bowel sounds MUSCULOSKELETAL: Extremities without clubbing, cyanosis, or edema. NEURO: Alert & Oriented x4 to person, place, time, situation. Moves all ext x4 Procedures EGD/ colonoscopy. Medications and IVs Inpatient Medications Acetaminophen (Tylenol) 650 mg Q6H PRN PO headache/fever/pain1-4 Last administered on 02/15/18at 05:44; Start 02/12/18 at 16:30 Acetaminophen/ Hydrocodone Bitart (Mark 5-325 Mg) 1 tab Q8H PRN PO pain 5-10 ; Start 02/12/18 at 16:30 Amlodipine Besylate (Norvasc) 10 mg DAILY PO Last administered on 02/14/18at 08: 47; Start 02/14/18 at 06:00 Bisacodyl (Dulcolax Supp) 10 mg DAILY PRN RECTAL SEVERE CONSITIPATION; Start at 16:30 Chlorhexidine Gluconate (Chlorhexidine 2% Cloth) 3 pack SENIOR PENSIONS ADMINISTRATOR PRN TOPICAL SEE LABEL COMMENTS; Start 02/13/18 at 02:30; Stop 02/16/18 at 02:29 Citalopram Hydrobromide (CeleXA) 20 mg DAILY PO Last administered on 02/14/18at 08:48; Start 02/14/18 at 09:00 Donepezil HCl (Aricept) 10 mg HS PO Last administered on 02/14/18at 23:15; Start 02/14/18 at 21:00 Epinephrine HCl (EPINEPHrine (1:10,000) INJ) 1 mg ONCE ONCE OTHER Last administered on 02/13/18at 13:45; Start 02/13/18 at 13:43; Stop 02/13/18 at 13:45 ; Status DC Iron Sucrose 200 mg/Sodium Chloride 110 ml @ 110 mls/hr DAILY IV Last administered on 02/14/18at 08:51; Start 02/14/18 at 09:00; Stop 02/16/18 at 09:59 Lactated Ringer's 1,000 ml @ 30 mls/hr Q24H PRN IV SEE LABEL COMMENTS; Start at 02:30; Stop 02/16/18 at 02:29 Lactulose (Lactulose Liq) 30 ml DAILY PRN PO SEVERE CONSITIPATION; Start at 16:30 Levothyroxine Sodium (Synthroid) 50 mcg DAILY@0600 PO Last administered on 02/15at 05:43; Start 02/14/18 at 06:00 Magnesium Hydroxide (Milk Of Magnesia Liq) 30 ml Q12H PRN PO Mild constipation ; Start 02/12/18 at 16:30 Metoprolol Tartrate (Lopressor) 25 mg DAILY PO ; Start 02/14/18 at 09:00; Stop 02/14/18 at 09:03; Status DC Ondansetron HCl (Zofran Inj) 4 mg Q6H PRN IVP NAUSEA OR VOMITING; Start at 16:30 Pantoprazole Sodium (Protonix) 40 mg DAILY PO ; Start 02/14/18 at 09:00 Polyethylene Glycol/ Electrolytes (Colyte Liq) 4,000 ml ONCE ONCE PO Last administered on 02/13/18at 04:25; Start 02/12/18 at 16:45; Stop 02/12/18 at 16:48 ; Status DC Povidone Iodine (Betadine 5% Antisepsis Kit) 1 applic SENIOR PENSIONS ADMINISTRATOR PRN EACH NARE SEE LABEL COMMENTS; Start 02/13/18 at 02:30; Stop 02/16/18 at 02:29 Pravastatin Sodium (Pravachol) 40 mg DAILY PO Last administered on 02/14/18at 08 :47; Start 02/14/18 at 09:00 Senna/Docusate Sodium (Charo-Colace) 1 tab BID PO Last administered on at 23:14; Start 02/12/18 at 21:00 Sennosides (Senokot) 17.2 mg Q12H PRN PO Moderate constipation; Start 02/12/18 at 16:30 Sodium Chloride 500 ml @ 30 mls/hr [id number] PRN IV SEE LABEL COMMENTS; Start at 02:30; Stop 4/23/18 at 02:29 Sodium Chloride (NS Flush) 2 ml UNSCH PRN IVF FLUSH AFTER USING IV ACCESS; Start 02/12/18 at 12:00 Tamsulosin HCl (Flomax) 0.4 mg HS PO Last administered on 02/14/18at 23:14; Start 02/14/18 at 21:00 A/P Problem List: (1) Anemia ICD Code: D64.9 - Anemia, unspecified Status: Acute (2) Postural dizziness with near syncope ICD Code: R42 - Dizziness and giddiness; R55 - Syncope and collapse Status: Acute Assessment and Plan A/P Near Syncope/Dizziness: suspect secondary Bradycardia. Patient reportedly with HR in 40s at PCP office. -Head CT images reviewed, no acute findings, mild generalized atrophy, chronic microvascular ischemia; stable encephalomalacia right temporal lobe -EKG reviewed, shows sinus rhythm with 1st degree AV block -Monitor on telemetry - echocardiogram with EF 60%. -no BB -cardiology f/u appreciated- f/u as outpatient. -Consulted PT Symptomatic Anemia- hypochromic/ microcytic- -s/p PRBC transfusion with improved and stable H/H -GI consult appreciated- -s/p EGD with : Stricture duodenal bulb , ulcer with vissible vessel ,oozing slightly when touched-2 clips applied, 3 cc of epinephrine injected-no further bleeding.gastritis antrum-biopsy.esophagitis distal esophagus-biopsy. -s/p colonoscopy with diverticulosis and internal/external hemorrhoids. -continue PPI - Hematology consult appreciated; started on IV Iron- f/u with hematology as outpatient. acute kidney injury -improved after PRBC transfusion and IVF -continue to monitor. elevated TSH/ hypothyroidism; continue Levothyroxine- f/u as outpatient. abdominal aortic aneurysm- f/u as outpatient. ( the family are aware; patient is being followed-up for it). HTN/HLD: chronic -resumed home meds. -monitor BP, adjust antihypertensives as needed DNR status per my d/w the daughters. DVT Prophylaxis: teds/SCDs; avoid chemoprophylaxis with anemia Discharge Planning dc home when cleared by GI. f/u; pcp,GI,hematology and cardiology. Problem Qualifiers (1) Anemia: Qualified Codes: D64.9 - Anemia, unspecified Karon Watson MD Feb 15, 2018 09:30
[2018-02-15] MEDS: IRON SUCROSE INJ 200 MG in SODIUM CHLORIDE 0.9% INJ 100 ML IV SCH (09:32)
[2018-02-15] MEDS: CITALOPRAM HYDROBROMIDE 20 MG TAB PO SCH (09:33)
[2018-02-15] MEDS: PRAVASTATIN SOD 40 MG TAB PO SCH (09:33)
[2018-02-15] MEDS: PANTOPRAZOLE SOD 40 MG DELAYED RELEASE TAB PO SCH ×2 (09:33)
[2018-02-15] MEDS: DOCUSATE SODIUM 50 MG/SENNA 8.6 MG TAB PO SCH (09:34)
[2018-02-15 12:26] VITALS: BP 144/68; PULSE 77; RESP 20; TEMP 97.9; O2SAT 98
[2018-02-15] MEDS ORDERED: PANT40TA3 PO (14:27)
[2018-02-15] MEDS ORDERED: FERR325T18 PO (14:27)
[2018-02-15 15:23] VITALS: BP 142/60; PULSE 80; RESP 18; TEMP 98.2; O2SAT 96
[2018-02-15 15:33] VITALS: PULSE 83
--- NOTE | 2018-02-15 15:40 | HHI.GIFU ---
Subjective Remarks Pt resting in bed No GI complaints at this time (June Adams) Objective Vitals I&O Vital Signs Date Time Temp Pulse Resp B/P (MAP) Pulse Ox O2 Delivery O2 Flow Rate FiO2 02/15/18 15:23 98.2 80 18 142/60 (87) 96 02/15/18 12:26 97.9 77 20 144/68 (93) 98 02/15/18 08:30 55 02/15/18 08:24 98.2 80 20 136/80 (98) 97 02/15/18 00:00 98.2 76 20 150/84 (106) 95 02/14/18 20:00 98.2 74 20 127/84 (98) 97 02/14/18 16:00 98.2 64 18 148/78 (101) 95 I/O 02/14/18 02/14/18 02/14/18 02/15/18 02/15/18 02/15/18 07:00 15:00 23:00 07:00 15:00 23:00 Intake Total 240 ml Output Total 300 ml 225 ml Balance -60 ml -225 ml Intake Oral 240 ml Output Urine Total 300 ml 225 ml # Voids 1 2 # Bowel Movements 1 Laboratory Laboratory Tests Test 02/15/18 06:20 White Blood Count 6.1 Red Blood Count 3.78 Hemoglobin 9.9 Hematocrit 30.0 Mean Corpuscular Volume 79.2 Mean Corpuscular Hemoglobin 26.1 Mean Corpuscular Hemoglobin Concent 32.9 Red Cell Distribution Width 19.4 Platelet Count 249 Mean Platelet Volume 8.0 Neutrophils (%) (Auto) 66.2 Lymphocytes (%) (Auto) 12.5 Monocytes (%) (Auto) 15.1 Eosinophils (%) (Auto) 4.7 Basophils (%) (Auto) 1.5 Neutrophils # (Auto) 4.1 Lymphocytes # (Auto) 0.8 Monocytes # (Auto) 0.9 Eosinophils # (Auto) 0.3 Basophils # (Auto) 0.1 CBC Comment DIFF FINAL Differential Comment Imaging Last Impressions Abdomen/Pelvis CT 02/13/18 0000 Signed Impressions: Service Date/Time: Tuesday, February 13, 2018 15:51 - CONCLUSION: 1. Bilobed infrarenal abdominal aortic aneurysm measuring 3.5 cm in maximum dimension. 2. Diverticulosis without diverticulitis. 3. Atrophic right kidney. 4. Cholelithiasis. 5. Left-sided parapelvic renal cyst. 6. Minimal bibasilar atelectasis. Ty Rubin MD Chest X-Ray 02/12/18 1159 Signed Impressions: Service Date/Time: January 12:45 - CONCLUSION: Bibasilar subsegmental atelectasis. Ty Rubin MD Head CT 02/12/18 0000 Signed Impressions: Service Date/Time: January 12:30 - CONCLUSION: 1. No acute intracranial abnormality is identified. 2. Stable chronic findings include mild generalized atrophy and mild periventricular white matter low attenuation characteristic of chronic microvascular ischemia. 3. 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 Romel Roberson MD Physical Exam HEENT: Normocephalic; atraumatic CHEST: Even/unlabored ABDOMEN: Soft, nondistended, nontender; bowel sounds active EXTREMITIES: No clubbing, cyanosis, or edema. SKIN: Normal; no rash; no jaundice. FORGING OPERATOR: No focal deficits; alert and oriented times three. (June Adams) Assessment and Plan Plan ASSESSMENT - anemia - hgb 7.4 on admission. microcytic. pt has been having dizziness for the last month. no obvious GIB stool guiac neg. colonoscopy "long time " ago, no further details. limited hx. not on blood thinners cardiology has been consulted. d/w ER physician and cardiology has cleared for endoscopy after pt receives blood transfusion (02/15) EGD (02/13) --> Stricture duodenal bulb , ulcer with visible vessel, oozing slightly when touched-2 clips applied, 3 cc of epinephrine injected-no further bleeding, gastritis antrum-biopsy, esophagitis distal esophagus-biopsy Retroflexed views revealed a hiatal hernia Colonoscopy (02/13) --> Diverticulosis in the descending and sigmoid colon. Internal and external hemorrhoids. CT abdomen and pelvis W/O IV contrast (02/13) --> Bilobed infrarenal abdominal aortic aneurysm measuring 3.5 cm in maximum dimension. Diverticulosis without diverticulitis. Atrophic right kidney. Cholelithiasis. Left-sided parapelvic renal cyst. Minimal bibasilar atelectasis. H/H improved, no PRBCs since 02/13. Pt with no GI complaints at this time. PLAN - Repeat EGD in 6 weeks - EGD biopsy pending - Protonix - OK to DC from a GI standpoint - Have pt follow up with GI after DC Patient has been seen and examined by myself and Dr. Guerra and this note is written on his behalf (June Adams) Physician Comments Patient seen and examined Agree with above Continue with current supportive care Monitor labs (Brent Guerra MD) June Adams Feb 15, 2018 15:40 Brent Guerra MD Feb 16, 2018 00:41
== END 2018-02-15 17:31 | disposition home or self-care (01) | DRG 811 ==
LOC: NEPE 11:37 → NEDA 14:07 → NEPHCDU 19:59 → OBSVTOIN 02-13 16:17
PROVIDERS: ADMIT Internal Medicine; ATTEND Internal Medicine
PROC: 0DB38ZX Excision of Lower Esophagus, Via Natural or Artificial Opening Endoscopic, Diagnostic (ICD-10-PCS; 2018-02-13)
PROC: 0DB68ZX Excision of Stomach, Via Natural or Artificial Opening Endoscopic, Diagnostic (ICD-10-PCS; 2018-02-13)
PROC: 0W3P8ZZ Control Bleeding in Gastrointestinal Tract, Via Natural or Artificial Opening Endoscopic (ICD-10-PCS; 2018-02-13)
PROC: 3E0G8GC Introduction of Other Therapeutic Substance into Upper GI, Via Natural or Artificial Opening Endoscopic (ICD-10-PCS; 2018-02-13)
PROC: 0DJD8ZZ Inspection of Lower Intestinal Tract, Via Natural or Artificial Opening Endoscopic (ICD-10-PCS; 2018-02-13)
PROC: 30233N1 Transfusion of Nonautologous Red Blood Cells into Peripheral Vein, Percutaneous Approach (ICD-10-PCS; 2018-02-13 12:46)
PROC: 3E033GC Introduction of Other Therapeutic Substance into Peripheral Vein, Percutaneous Approach (ICD-10-PCS; principal; 2018-02-14)
DX: D50.9 Iron deficiency anemia, unspecified (principal); K26.4 Chronic or unspecified duodenal ulcer with hemorrhage; N17.9 Acute kidney failure, unspecified; R00.1 Bradycardia, unspecified; G93.89 Other specified disorders of brain; K31.5 Obstruction of duodenum; I44.1 Atrioventricular block, second degree; I50.9 Heart failure, unspecified; K44.9 Diaphragmatic hernia without obstruction or gangrene; K57.30 Diverticulosis of large intestine without perforation or abscess without bleeding; K64.8 Other hemorrhoids; K64.4 Residual hemorrhoidal skin tags; E03.9 Hypothyroidism, unspecified; I71.4 Abdominal aortic aneurysm, without rupture; E78.5 Hyperlipidemia, unspecified; I10 Essential (primary) hypertension; H91.90 Unspecified hearing loss, unspecified ear; Z66 Do not resuscitate; Z87.11 Personal history of peptic ulcer disease; Z96.643 Presence of artificial hip joint, bilateral; Z87.891 Personal history of nicotine dependence
CPT/HCPCS: 36430; 70450; 71046; 74176; 80048; 82550; 82728; 83540; 83550; 83735; 83880; 84439; 84443; 84484; 85025; 85610; 85730; 86850; 86900; 86901; 86920; 88305; 88312; 93005; 93306; 96360; 96361; G0378; G8987-GP; G8988-GP; J0171; J1756; J7030; J7040; P9016